=== PATIENT | male | born 1935 | race Caucasian/White ===

== ENCOUNTER → 2017-06-08 | Outpatient (CLI) | payer MEDICARE | END | disposition home or self-care (01) | LOC: BFHH 10:27 | PROVIDERS: ATTEND Family Medicine | DX: H34.11 Central retinal artery occlusion, right eye (principal); I48.0 Paroxysmal atrial fibrillation; M54.5 Low back pain; G47.30 Sleep apnea, unspecified; Z85.038 Personal history of other malignant neoplasm of large intestine; I65.29 Occlusion and stenosis of unspecified carotid artery ==

== ENCOUNTER 2017-06-23 14:25 | Inpatient (IN) | payer MEDICARE ==
--- NOTE | 2017-06-23 14:26 | HP ---
SUPERVISING PHYSICIAN: Yakov Peterson M.D. CHIEF COMPLAINT: Weakness and shortness of breath. HISTORY OF PRESENT ILLNESS: This is an 81 year-old male patient who was recently in [place] due to a GI bleed. He was discharged this past Wednesday. While he was at [facility], he had an EGD per Dr. Mikhail Aceves which found erosive gastritis and later had a colonoscopy per Dr. Abdi Mercedes. They found some polyps that they removed as well as some diverticulosis. There was no active bleeding but his hemoglobin was in the 7s. He was discharged from the hospital on Wednesday and he had a 7.2 hemoglobin. Since getting home, he has gotten weaker and weaker. In fact, he has had to be transported around in a wheelchair. He has gotten very short of breath. There was some question at some point where they thought he may have had some left lower lobe pneumonia. It is unclear whether he was treated. He was taken off his Xarelto while he was in there and was told to stay off of it for 2 weeks, and to followup with his cigarette packer. Dr. Hernandez saw him today and his hemoglobin was 7.4. He was short of breath and very weak and so he called me for a direct admission. PAST MEDICAL HISTORY: 1. Atrial fibrillation. 2. Hyperlipidemia. 3. Obstructive sleep apnea. 4. Peptic ulcer disease. 5. Obstructive sleep apnea. 6. Colon cancer times 2. 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 PAST SURGICAL HISTORY: 1. Arthroscopy of the left knee. 2. Cataract removal. 3. Colon resection times 2 with hemicolectomy. 4. Thoracic kyphoplasty. OUTPATIENT MEDICATIONS: Per the EMR and awaiting verification. ALLERGIES: NO KNOWN DRUG ALLERGIES. SOCIAL HISTORY: He is . He has 6 children. He has a past history of cigarette smoking but he quit in 1973. He denies any ETOH or illicit drug use. REVIEW OF SYSTEMS: Positive for fatigue. Negative for fever or weight changes. HEENT: Negative for sinus symptoms, vision changes or sore throat. RESPIRATORY: Positive for shortness of breath and coughing as well as wheezing. CARDIAC: Negative for chest pain, palpitations or tachycardia. GASTROINTESTINAL: Negative for abdominal pain, change in stool, nausea, vomiting or diarrhea. GENITOURINARY: Negative for polyuria, dysuria or hematuria. NEUROLOGIC: Positive for weakness. Negative for headache and seizures. PHYSICAL EXAMINATION: VITAL SIGNS: He is afebrile, heart rate 88, blood pressure 122/58, respiratory rate 20, O2 sat is 96%. GENERAL: This is an 81 year-old male patient who is lying in his hospital bed. He is very pale and appears very tired. HEENT: Normocephalic and atraumatic. Oropharynx is clear. Oral mucous membranes are very pale but moist. NECK: Supple without mass. RESPIRATORY: Essentially clear in the apices to auscultation bilaterally. Somewhat diminished at the bases. CHEST: There is equal rise and fall of the chest with inspiration and expiration. CARDIOVASCULAR: Regular rate and rhythm. ABDOMEN: Soft, nondistended, non-tender. Bowel sounds are positive. EXTREMITIES: No cyanosis, clubbing or edema. NEUROLOGIC: He is awake, alert and oriented times three. LABORATORY: Electrolytes are within normal limits. Calcium 7.7. CBC from A shows WBC 8.8 with hemoglobin 7.4, hematocrit 23.8, platelets 284, neutrophils 74.2%. All other labs and films have been reviewed via the EMR. ASSESSMENT: 1. Anemia secondary to acute blood loss from ongoing gastrointestinal bleed. He recently had a colonoscopy per Dr. Abdi Mercedes, residential designer finding diverticulosis and multiple polyps as well as an EGD per Dr. Mikhail Aceves, residential designer with findings of erosive gastritis. He was discharged with a hemoglobin of 7.2 on 06/20/17. 2. Cellulitis of the left arm. 3. Atrial fibrillation previously on Xarelto, was stopped about 1 week ago due to his gastrointestinal bleed. 4. Shortness of breath secondary to #1. There is also a question of left lower lobe pneumonia at last hospital stay. 5. Weakness secondary to #1. 6. Obstructive sleep apnea. 7. History of colon cancer times 2. PLAN: We will admit the patient to the hospital. We will transfuse 2 units of packed red blood cells. I have also given him Rocephin for the cellulitis on his left arm. I have given him Protonix for ulcer prophylaxis. I have repeated his lab in the morning. I have also done a chest x-ray for morning to evaluate his lung status. I have restarted his home medications. He sees Dr. Sauceda in [place] and the patient told me that Dr. Sauceda would not restart his Xarelto, that he needs to speak to his residential designer .Dr. Mercedes, his residential designer, said he needed to talk to his cigarette packer. The patient would like to see Dr. Gallegos mostly for convenience. Instead of going to [place], he can see Dr. Gallegos here in [place]. His sees Dr. Gallegos. At some point, we may need to get Dr. Hernandez to refer him to Dr. Gallegos and we will also need to address at some point restarting his Xarelto. In the meantime, we will continue to monitor the patient closely and follow as needed. Anticipated length of stay is [address] Peterson is the collaborating physician available for consultation. [facility][id number] [facility]
[2017-06-23] MEDS ORDERED: ACETAMINOPHEN 325 MG TAB PO ONE (14:52)
[2017-06-23] MEDS ORDERED: diphenhydrAMINE HCL 50 MG/ML VIAL IV ONE (14:52)
[2017-06-23] MEDS ORDERED: FUROSEMIDE INJ 40 MG/4 ML VIAL IV ONE (14:52)
[2017-06-23] MEDS ORDERED: SODIUM CHLORIDE 0.9% 500ML 500 ML IVS SCH (15:00)
[2017-06-23] MEDS ORDERED: SODIUM CHLORIDE 0.9% (FLUSH) 10 ML SYG IV PRN ×2 (15:10→15:43)
[2017-06-23] MEDS ORDERED: IV SET AND CAP CHANGE INJ INJ SCH ×2 (15:30→16:00)
[2017-06-23] MEDS ORDERED: cefTRIAXone SODIUM 1 GM VIAL ONE (17:37)
[2017-06-23] MEDS ORDERED: SODIUM CHL 0.9% 50ML MIN-BAG+ 50 ML IVPB ONE (17:37)
[2017-06-23] MEDS: cefTRIAXone SODIUM 1 GM in SODIUM CHL 0.9% 50ML MIN-BAG+ 50 ML IVPB SCH (17:44)
[2017-06-23] MEDS ORDERED: PANTOPRAZOLE SODIUM IV 40 MG VIAL IV SCH (18:00)
--- NOTE | 2017-06-23 18:25 | PCM.CORE ---
Physician DVT/VTE - Contraindications Medication Contraindication: Medical Contraindication - Nurse DVT Assessment & Total Each Risk Factor Represents 5 Points: Stroke < 1 month Each Risk Factor Represents 3 Points: Age over 75 years Each Risk Factor is 1 Point: Obesity (BMI >25) DVT Assessment Score: 9 - 5 or more Very High Risk Treatments: Early Ambulation *, Sequential Compression Device
[2017-06-23] MEDS ORDERED: TEMAZEPAM 15 MG CAP PO PRN (20:33)
[2017-06-23] MEDS: SODIUM CHLORIDE 0.9% (FLUSH) 10 ML SYG IV SCH (21:45)
[2017-06-24] MEDS ORDERED: PANTOPRAZOLE SODIUM TAB 40 MG PO ONE (05:14)
[2017-06-24] MEDS: PANTOPRAZOLE SODIUM TAB 40 MG PO SCH (06:14)
--- NOTE | 2017-06-24 06:49 | RAD ---
Clinical History : pna , MAIN Exam : PA and lateral views of the chest 06/24/2017 5:00 AM CDT Comparisons : none Findings : There is right perihilar airspace disease. The rest the lungs remain largely clear. The heart is normal in size. The mediastinal contours are normal in appearance. The thoracic spine is age appropriate. The shoulders are unremarkable. Limited evaluation of the upper abdomen demonstrates no gross abnormalities. Impression: Right perihilar airspace opacity, likely representing pneumonia though follow-up to radiographic resolution is recommended. Electronically signed by: Juan Rojas MD 06/24/2017 6:47 AM CDT
[2017-06-24] MEDS ORDERED: CITALOPRAM HBR 20 MG TAB ONE (07:30)
[2017-06-24] MEDS ORDERED: METOPROLOL SUCCINATE XL 25 MG TAB PO ONE (07:30)
[2017-06-24] MEDS: CITALOPRAM HBR 20 MG TAB PO SCH (08:52)
[2017-06-24] MEDS: ATORVASTATIN 10 MG TAB PO SCH (08:52)
[2017-06-24] MEDS: SODIUM CHLORIDE 0.9% (FLUSH) 10 ML SYG IV SCH ×2 (08:52→20:50)
[2017-06-24] MEDS: METOPROLOL SUCCINATE XL 25 MG TAB PO SCH (08:52)
[2017-06-24] MEDS ORDERED: CRESTOR 5 MG PO SCH (09:00)
[2017-06-24] MEDS ORDERED: LEVALBUTEROL NEBS 1.25 MG/3 ML VIAL NEB PRN (09:04)
[2017-06-24] MEDS ORDERED: SODIUM CHLORIDE 0.9% 250ML 250 ML ONE (09:44)
[2017-06-24] MEDS ORDERED: AZITHROMYCIN IV 500 MG VIAL IVPB ONE (09:45)
[2017-06-24] MEDS: AZITHROMYCIN IV 500 MG in SODIUM CHLORIDE 0.9% 250ML 250 ML IVPB SCH (09:51)
[2017-06-24] MEDS: LEVALBUTEROL NEBS 1.25 MG/3 ML VIAL NEB SCH ×2 (10:03→15:26)
[2017-06-24] MEDS ORDERED: SODIUM CHL 0.9% 50ML MIN-BAG+ 50 ML IVPB ONE (13:52)
[2017-06-24] MEDS ORDERED: cefTRIAXone SODIUM 1 GM VIAL ONE ×2 (13:52)
--- NOTE | 2017-06-24 14:53 | PN ---
SUPERVISING PHYSICIAN: Yakov Peterson MD DATE: 06/24/17 SUBJECTIVE: The patient continues to have some mild shortness of breath at rest. He is having productive sputum this morning. He did get his units of packed cells last night times two and had no complications. He says he feels a little bit better this morning, but continues to have some mild discomfort in the abdomen and at times continues to have dark stools, but he is noted to be on iron supplementation. OBJECTIVE: VITAL SIGNS: Temperature 98.3. Pulse 87. Blood pressure 120/80. Respirations 20. Saturation 94% on room air at rest. I&Os show negative balance of 1598. He has had one bowel movement. GENERAL: The patient appears ill and tired. He is pale. He appears to be in no acute distress. LUNGS: There is no obvious wheezing. Lung sounds are diminished in both bases. Very faint coarse rhonchi sound heard on the lateral posterior aspect on the right. CARDIAC: Regular rate and rhythm. ABDOMEN: Obese, but soft, nontender. Bowel sounds are positive. EXTREMITIES: No cyanosis, clubbing or edema. NEUROLOGIC: Awake, alert and oriented times three. LABORATORY: Hemoglobin 9.3, hematocrit 28.1 after 2 units of packed red blood cells. Platelet count 262,000, white count 7,400, differential within normal limits. Chemistries show normal electrolytes with BUN 17, creatinine 1.05, calcium unchanged from admission at 7.7 with albumin 2.7, total bilirubin elevated today at 1.5 compared to admission of 0.7. MICROBIOLOGY: Sputum culture pending. RADIOLOGY: Chest x-ray today per radiologic interpretation shows right perihilar airspace opacity, likely representing pneumonia. ASSESSMENT: 1. Right middle lobe pneumonia, possibly health care acquired as the patient as recently been in the hospital with sputum cultures pending. 2. Symptomatic anemia secondary to recent gastrointestinal bleed. The patient was scoped by Dr. Abdi Mercedes, cistern room operator, in the last week showing diverticulosis and multiple polyps as well as an EGD performed by Dr. Mikhail Aceves, cistern room operator, with findings of erosive gastritis. The patient was recently discharged on 06/20/17, with a hemoglobin of 7.2. 3. Cellulitis of the left arm, likely secondary to previous IV administrations and multiple IV sticks from last hospitalization. 4. Atrial fibrillation previously on Xarelto, stopped a week ago previous due to his gastrointestinal bleed. 5. Continued shortness of breath secondary to underlying pneumonia with the patient having history of recently having left lower lobe pneumonia from previous hospitalization. 6. Significant deconditioning secondary to anemia and underlying pneumonia. 7. Obstructive sleep apnea. 8. History of colon cancer times 2. PLAN: The patient has shown underlying developing right lower lobe pneumonia and given that he has recently been treated for a left lower lobe pneumonia, I will start him on antibiotics in addition to the Rocephin to include azithromycin and monitor closely. We will await his sputum culture to further target antibiotic therapy as possible once reports are available. In regard to starting DVT prophylaxis, we will continue to monitor the patient closely and once discharged, the patient will need to followup with Dr. Hernandez so they can further address his Xarelto medication as he is followed by Dr. Sauceda in [place]. We will plan to do a hemoglobin and hematocrit this afternoon around 1600 to monitor closely for decrease in blood levels. We will start him on aggressive pulmonary hygiene. Anticipate length of stay to be at least two to three days. I will go ahead and do occult blood as well since he has reported some continued tarry, black stools. Until discharge, we will continue to monitor the patient closely and treat appropriately. #[id number] [facility]
[2017-06-24] MEDS: cefTRIAXone SODIUM 1 GM in SODIUM CHL 0.9% 50ML MIN-BAG+ 50 ML IVPB SCH (17:14)
[2017-06-25] MEDS: LEVALBUTEROL NEBS 1.25 MG/3 ML VIAL NEB SCH ×4 (00:08→23:55)
[2017-06-25] MEDS: PANTOPRAZOLE SODIUM TAB 40 MG PO SCH (06:11)
--- NOTE | 2017-06-25 06:39 | RAD ---
Procedure: XR CHEST 2 VIEWS Exam Date: 06/25/2017 Ordering Provider: Enrique Huff NP Clinical Indication: pneumonia Comparison: 06/24/2017 Findings: Cardiomediastinal silhouette is stable. Focal lung consolidation: Stable right infrahilar opacities. No new lung infiltrates. Pleural effusion: None Pneumothorax: None Acute bony or soft tissue abnormality: None Impression: 1. Stable right infrahilar opacities, likely pneumonia. No new lung infiltrates. Electronically signed by: Paul Nelson MD 06/25/2017 6:38 AM CDT
[2017-06-25] MEDS ORDERED: SODIUM CHLORIDE 0.9% 250ML 250 ML ONE (08:06)
[2017-06-25] MEDS ORDERED: AZITHROMYCIN IV 500 MG VIAL IVPB ONE (08:07)
[2017-06-25] MEDS: METOPROLOL SUCCINATE XL 25 MG TAB PO SCH (08:31)
[2017-06-25] MEDS: SODIUM CHLORIDE 0.9% (FLUSH) 10 ML SYG IV SCH ×2 (08:31→20:54)
[2017-06-25] MEDS: ATORVASTATIN 10 MG TAB PO SCH (08:31)
[2017-06-25] MEDS: CITALOPRAM HBR 20 MG TAB PO SCH (08:31)
[2017-06-25] MEDS ORDERED: SODIUM CHLORIDE 0.9% 1000ML 1,000 ML IVS PRN (08:48)
[2017-06-25] MEDS ORDERED: SODIUM CHLORIDE 0.9% 500ML 500 ML IVS ONE (08:49)
[2017-06-25] MEDS ORDERED: FERROUS SULFATE 325 MG TAB PO SCH (09:00)
[2017-06-25] MEDS: AZITHROMYCIN IV 500 MG in SODIUM CHLORIDE 0.9% 250ML 250 ML IVPB SCH (10:18)
[2017-06-25] MEDS: FERROUS SULFATE 325 MG TAB PO SCH (10:19)
[2017-06-25] MEDS ORDERED: SUCRALFATE 1 GM TAB PO SCH (11:30)
--- NOTE | 2017-06-25 13:35 | PN ---
SUPERVISING PHYSICIAN: Yakov Peterson MD DATE: 06/25/17 SUBJECTIVE: The patient feels a little better today. He is not quite as short of breath. He was able to ambulate yesterday and maintained O2 saturations in the 90s on room air. He has been afebrile. He says he is not longer seeing any tarry stools, but occult bloods are pending. OBJECTIVE: VITAL SIGNS: Temperature 97.7. Pulse 89. Blood pressure 98/57. Saturation 96% on nasal cannula at rest. I&Os showed negative balance of 1598 with 902 in, 2500 out with positive bowel movement. Weight 106.4 kg. CHEST: Lungs clear to auscultation, just diminished towards the bases. No obvious wheezing or rales were noted. HEART: Regular rate and rhythm. ABDOMEN: Soft, nontender. Positive bowel sounds. ABDOMEN: Obese, but soft and nontender. Positive bowel sounds. EXTREMITIES: No cyanosis, clubbing or edema. The area on his left arm is less erythematous today and not extended past the lines marked on admission. If fact , receding today. NEUROLOGIC: Alert and oriented times three. LABORATORY: Hemoglobin did drop slightly down to 8.9 and hemoglobin 27.5. Platelet count 249,000. Differential continues to show a left shift. White count within normal limits. Chemistries show normal electrolytes with potassium 3.7. BUN 16, creatinine 0.87. Calcium 7.7, corrected for hypoalbuminemia of 2.7 to 8.7. MICROBIOLOGY: Sputum culture preliminary shows gram negative diplococci. Cultures pending. RADIOLOGY: Chest x-ray today per radiologic interpretation, two-view chest, shows stable infrahilar opacity, likely pneumonia. No new lung infiltrates. ASSESSMENT: 1. Right middle lobe pneumonia, possibly health care related as the patient has recently been in the hospital with sputum cultures pending with preliminary cultures showing a possible Moraxella species, which is a gram negative diplococci with the patient currently on antibiotic therapy to include azithromycin and Rocephin. 2. Symptomatic anemia secondary to recent gastrointestinal bleed. The patient with recent EGD and colonoscopy with results showing diverticulosis, multiple polyps and erosive gastritis with the patient having recently been discharged from [facility] on 06/20/17 with hemoglobin 7.2 requiring transfusion of 2 units of packed red blood cells, currently stable and also now on a proton pump inhibitor and Carafate. 3. Cellulitis of the left arm, likely secondary to previous IV administrations at [facility] and multiple IV sticks, showing improvement with Rocephin. 4. Atrial fibrillation previously on Xarelto, stopped a week previous due to his gastrointestinal bleed. Xarelto will need to be resumed in the near future once stable. 5. Significant deconditioning secondary to anemia and underlying pneumonia. 6. Obstructive sleep apnea. 7. History of colon cancer times 2 with colon resections. PLAN: The patient will continue with current plan of care with Rocephin and azithromycin awaiting culture results on sputum to further target antibiotic therapy. We will continue with aggressive pulmonary hygiene with chest physiotherapy. We will hopefully anticipate being able to discharge tomorrow once sputum culture results are available and clinically reevaluate the patient. In regard to DVT prophylaxis, we will continue to monitor the patient closely. He will need to followup with Dr. Hernandez so they can further address his Xarelto medication. He is followed by Dr. Sauceda in [place]. We will plan to repeat hemoglobin again at 1600 to further monitor as well and await any stool occult blood. Until discharge, we will continue to monitor the patient closely and treat appropriately. #[id number] [facility]
[2017-06-25] MEDS ORDERED: LIDOCAINE VIS-MYLANTA 30 ML UD PO ONE (15:28)
[2017-06-25] MEDS ORDERED: LIDOCAINE HCL 2% (MOUTH-THROAT) 15 ML UD ONE (15:56)
[2017-06-25] MEDS ORDERED: MAGNESIUM HYDROXIDE 30 ML UD ONE (15:56)
[2017-06-25] MEDS ORDERED: SODIUM CHL 0.9% 50ML MIN-BAG+ 50 ML IVPB ONE (17:02)
[2017-06-25] MEDS ORDERED: cefTRIAXone SODIUM 1 GM VIAL ONE (17:02)
[2017-06-25] MEDS: cefTRIAXone SODIUM 1 GM in SODIUM CHL 0.9% 50ML MIN-BAG+ 50 ML IVPB SCH (17:05)
[2017-06-25] MEDS: SUCRALFATE 1 GM/10 ML 1 GM UD PO SCH ×2 (17:05→20:54)
[2017-06-25] MEDS: KCL 20MEQ/D5 1/2NS 1,000 ML IVS PRN (21:13)
[2017-06-26 00:59] VITALS: TEMP 98.2
[2017-06-26] MEDS: KCL 20MEQ/D5 1/2NS 1,000 ML IVS PRN (02:19)
[2017-06-26] MEDS: SUCRALFATE 1 GM/10 ML 1 GM UD PO SCH (06:35)
[2017-06-26] MEDS: PANTOPRAZOLE SODIUM TAB 40 MG PO SCH (06:35)
[2017-06-26] MEDS ORDERED: SODIUM CHLORIDE 0.9% 250ML 0 ML ONE (07:47)
[2017-06-26] MEDS ORDERED: AZITHROMYCIN IV 500 MG VIAL IVPB ONE (07:48)
[2017-06-26] MEDS ORDERED: KCL 20MEQ/D5 1/2NS 1,000 ML IVS PRN (08:00)
[2017-06-26] MEDS: LEVALBUTEROL NEBS 1.25 MG/3 ML VIAL NEB SCH (08:05)
[2017-06-26 08:17] VITALS: O2SAT 99
--- NOTE | 2017-06-26 09:09 | RAD ---
EXAM: Two view chest. INDICATION: Pneumonia. COMPARISON: Chest x-ray: 06/25/2017. FINDINGS: Again noted is a right perihilar airspace opacity. The heart size is stable. There is no pneumothorax or pleural effusion. The bones are unchanged with a sclerotic lesion along the lower thoracic spine IMPRESSION: Right perihilar airspace opacity, likely representing pneumonia Electronically signed by: Ritchie Carty MD 06/26/2017 9:08 AM CDT Workstation: [id number]
[2017-06-26] MEDS: SODIUM CHLORIDE 0.9% (FLUSH) 10 ML SYG IV SCH (09:16)
[2017-06-26] MEDS: CITALOPRAM HBR 20 MG TAB PO SCH (09:16)
[2017-06-26] MEDS: ATORVASTATIN 10 MG TAB PO SCH (09:16)
[2017-06-26] MEDS: FERROUS SULFATE 325 MG TAB PO SCH (09:16)
[2017-06-26] MEDS: METOPROLOL SUCCINATE XL 25 MG TAB PO SCH (09:16)
[2017-06-26 09:33] VITALS: BP 152/84
[2017-06-26] MEDS ORDERED: AZITHROMYCIN 250 MG TAB PO SCH (10:00)
--- NOTE | 2017-07-15 18:18 | DS ---
SUPERVISING PHYSICIAN: Yakov Peterson M.D. DISCHARGE DIAGNOSIS: 1. Right middle lobe pneumonia, possibly health care acquired as the patient had recently been in the hospital for having sputum cultures final culture results showing normal jeferson with the patient showing to be clinically improving with parenteral antibiotics that included Azithromycin and Rocephin. 2. Symptomatic anemia secondary to recent gastrointestinal bleed. The patient with recent EGD and colonoscopy showing results of diverticulosis with multiple polyps and erosive gastritis with the patient having recently been discharged from [facility] on 06/20/17 with hemoglobin 7.2 requiring transfusion of 2 units of packed red blood cells showing to be stable, also started on a proton pump inhibitor and Carafate. 3. Cellulitis of the left arm secondary to previous IV administrations at [facility] with multiple sticks showing improvement with Rocephin. 4. Atrial fibrillation having previously been on Xarelto, stopped 2 weeks previous due to gastrointestinal bleed with Xarelto needing to be resumed in the near future once showing to be stable. 5. Significant deconditioning secondary to anemia and underlying pneumonia. 6. Obstructive sleep apnea. 7. History of colon cancer times 2 with colon resections. HISTORY OF PRESENT ILLNESS: Mr. Adler is an 81 year-old male patient that was recently seen in [place] due to a GI bleed. He was discharged the previous Wednesday prior to admission. While he was at [facility], he had an EGD by Dr. Mikhail Aceves which found erosive gastritis and then later he had a colonoscopy by Dr. Abdi Mercedes. They found some polyps that they removed as well as some diverticulosis. There was no active bleeding but his hemoglobin was down to 7. He was discharged from the hospital on Wednesday and had a hemoglobin of 7.2 at that time. At home, he had begun getting weaker and weaker to the point where he had to be transported around in a wheelchair. He had gotten very short of breath. There was some question at some point whether or not he had thought he had left lower lobe pneumonia. It is unclear whether he was treated. He was taken off his Xarelto while at [facility] and was told to stay off it for at least 2 weeks, and to followup with Cardiology. Dr. Hernandez saw him in clinic and his hemoglobin was 7.4. He was short of breath, severely weak and therefore was directly admitted to the hospital. LABORATORY STUDIES: CBC on admission showed hemoglobin 9.3 and 28.1 after transfusion of 2 units of packed cells. He did show fairly stable H&H, at discharge his H&H was 8.5 and 26.0. White count was within normal limits at 6, 100, platelet count was 249,000. Differential showed to be within normal limits. Chemistries showed normal electrolytes with initial potassium on admission of 4.0 and sodium 137, at discharge was 3.6 potassium and sodium was 139. BUN 11, creatinine 0.77 at discharge. He had 2 sets of troponins that were less than 0.02. Liver functions showed to be within normal limits. He had 1 occult blood that was negative. MICROBIOLOGY: He had a gram stain that showed moderate WBCs with mucous and gram negative cocci with final culture results showing normal jeferson at 48 hours. RADIOLOGY: EKG on admission showed atrial fibrillation with controlled ventricular rate at 83. Initial chest x-ray on the morning after admission per radiology interpretation showed a right perihilar airspace opacity likely representing pneumonia. This was followed-up with multiple x-rays and on the morning of discharge on the a two view chest x-ray per radiology interpretation showed right perihilar airspace likely representing pneumonia. HOSPITAL COURSE: Mr. Adler was admitted on 06/23/17 as noted in History of Present Illness for severe anemia. He was transfused 2 units of packed red blood cells with no complications. His H&H did improve clinically to a discharge H&H of 8.5 and 26.0. He remained hemodynamically stable. Blood pressure on discharge was 152/84, respirations 20, satting 93% on room air with temperature 98.2, pulse 100. It was felt that he had clinically shown to be stable and was showing no obvious signs of bleeding. His arm had also shown improvement with Rocephin. He had had aggressive pulmonary hygiene and was felt well enough to be discharged to continue with treatment of both pneumonia and the cellulitis with close observation of anemia in the outpatient setting. Therefore he was discharged in stable condition. PLAN: Mr. Adler was discharged on 06/26/17 with instructions to followup with Dr. Hernandez as scheduled in 2 weeks. He is to resume his home medications as instructed except for holding his Warfarin until he was seen in followup. He had home health. They are to draw labs on Eliud after discharge and recheck blood levels. He was to take his medications as directed and return to the hospital should he have any concerning symptoms. New prescriptions at discharge included: 1. Azithromycin 500 mg tablets daily for 2 days. 2. Align 4 mg tablet daily, #30. 3. Doxycycline 100 mg twice daily, #20. 4. Xopenex neb treatments 1.25 mg every 8 hours as needed, #25. 5. Xopenex nebulizer treatments every 8 hours as scheduled, #25. 6. Carafate 1 gram oral tablet at meals and at bedtime, #40. Activity is increase as tolerated. Diet is regular diet as tolerated, to avoid spicy foods. Condition at discharge was stable. #[id number] [facility]
== END 2017-06-26 11:35 | disposition home health service (06) | DRG 811 ==
LOC: UNDOADMIN 14:25 → MS 14:25 → UNDOADMIN 06-25 08:00 → MS 06-25 08:00 → UNDODISIN 06-26 11:35
PROVIDERS: ADMIT Nurse Practitioner Acute Care; ATTEND Nurse Practitioner Family
PROC: 30233N1 Transfusion of Nonautologous Red Blood Cells into Peripheral Vein, Percutaneous Approach (ICD-10-PCS; principal; 2017-06-23)
DX: D62 Acute posthemorrhagic anemia (principal); J18.9 Pneumonia, unspecified organism; K92.2 Gastrointestinal hemorrhage, unspecified; L03.114 Cellulitis of left upper limb; G47.33 Obstructive sleep apnea (adult) (pediatric); I48.91 Unspecified atrial fibrillation; Z79.01 Long term (current) use of anticoagulants; Z85.038 Personal history of other malignant neoplasm of large intestine

== ENCOUNTER 2017-06-29 10:49 | Observation (INO) | payer MEDICARE ==
--- NOTE | 2017-06-29 12:03 | ED.PDOC ---
History of Present Illness - General Chief Complaint: General Stated Complaint: Continued weakness, pale, no appetite Time Seen by Provider: 06/29/17 10:55 Source: patient, RN notes reviewed Exam Limitations: no limitations - History of Present Illness Initial Comments: Vinayak Adler 81 y/o male stated that he had been feeling weak and difficulty moving around since he was hospitalized 2 weeks ago for hematochezia.Had Hgb- 7.2 last week and was sent to [facility] and egd/colonoscopy done with biopsy report egd-chronic gastritis ;colon-adenomatous polyp no high grade lesion.He was sent home but came back here and was given 2 units of blood transfusion then was sent home Has history of a.fib was on xarelto and aspirin but was discontinued due to above. Timing/Duration: constant, getting worse, other - 2 weeks Improving Factors: nothing Worsening Factors: nothing Associated Symptoms: weakness, other - loss of appetite Allergies/Adverse Reactions: Allergies NO KNOWN ALLERGY Allergy (Verified 06/29/17 11:06) Home Medications: Ambulatory Orders Loperamide Cap [Imodium Cap] 2 mg PO BID PRN 07/29/15 Metoprolol Succinate [Toprol Xl] 25 mg PO QAM #30 tab 08/01/15 Pantoprazole Tablet [Protonix] 40 mg PO DAILY #5 tab 12/30/15 Acetaminophen Arthritis [Tylenol Arthritis Pain] 650 mg PO BID PRN 06/23/17 Calcium Carbonate-Vitamin D [Calcium + D3 600-200 mg-Unit] 1 tab PO DAILY Cholecalciferol [Vitamin D] 1,000 unit PO DAILY 06/23/17 Citalopram Hydrobromide 20 mg PO DAILY 06/23/17 Crestor 5 mg PO DAILY 06/23/17 Ferrous Sulfate 324 mg PO DAILY 06/23/17 Bifidobacterium Infantis [Align] 4 mg PO DAILY #30 cap 06/26/17 Doxycycline Hyclate [Vibramycin] 100 mg PO BID #20 cap 06/26/17 Levalbuterol Nebs [Xopenex NEBS] 1.25 mg NEB Q8H PRN #25 vial 06/26/17 Levalbuterol Nebs [Xopenex NEBS] 1.25 mg NEB RTQ8 #25 vial 06/26/17 Sucralfate Tab [Carafate Tab] 1 gm PO ACHS #40 tab 06/26/17 Review of Systems - Review of Systems Constitutional: States: see HPI, weakness, other - anorexia EENTM: States: no symptoms reported Respiratory: States: no symptoms reported Cardiology: States: see HPI Gastrointestinal/Abdominal: States: see HPI Genitourinary: States: no symptoms reported Musculoskeletal: States: no symptoms reported Skin: States: no symptoms reported Neurological: States: 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 Endocrine: States: no symptoms reported Hematologic/Lymphatic: States: see HPI, anemia Past Medical History (General) - Patient Medical History Hx Seizures: No Hx Stroke: Yes - 05/2017 Hx Asthma: No Hx of COPD: No Hx Cardiac Disorders: Yes - A fib Hx Congestive Heart Failure: No Hx Pacemaker: No Hx Hypertension: No Hx Diabetes: No Hx Gastroesophageal Reflux: Yes - heartburn Hx Cancer: Yes - Adenocarcinoma to colon Hx Hepatitis C: No Hx MRSA: No Surgical History: colectomy, other - egd/colonoscopy - Vaccination History Hx Tetanus, Diphtheria Vaccination: Yes Hx Influenza Vaccination: No Hx Pneumococcal Vaccination: Yes - Social History Hx Tobacco Use: Yes - Quit 1974 Hx Chewing Tobacco Use: No Hx Alcohol Use: No Hx Substance Use: No Hx Substance Use Treatment: No Hx Depression: No Hx Physical Abuse: No Hx Emotional Abuse: No Hx Suspected Abuse: No - Female History Patient : No Family Medical History - Family History Father Name: Yakov Adler Living Status: Age at (years of age): 81 Cause of : cancer Hx Family Cancer: Yes - prostate Hx Family;Other: Pt has multiple male relatives with colon cancer. Physical Exam - Physical Exam General Appearance: Alert, Comfortable, No apparent distress Eye Exam: right other - legally blind -old cva, left normal Ears, Nose, Throat: hearing grossly normal, normal ENT inspection, normal pharynx Neck: non-tender, full range of motion, supple Respiratory: chest non-tender, lungs clear, normal breath sounds, no respiratory distress Cardiovascular/Chest: normal peripheral pulses, no gallop, no murmur, irregularly irregular Peripheral Pulses: radial,right: 2+, radial,left: 2+ Gastrointestinal/Abdominal: normal bowel sounds, non tender, soft, no organomegaly Rectal Exam: normal rectal tone, heme positive stool Back Exam: no CVA tenderness, no vertebral tenderness Extremity: normal range of motion, non-tender, no pedal edema, no calf tenderness Neurologic: no motor/sensory deficits, alert, normal mood/affect Skin Exam: normal color, warm/dry Lymphatic: no adenopathy Progress - Progress Progress: 06/29/17 12:08 Laboratory Tests 06/29/17 11:20 WBC 7.0 RBC 3.33 L Hgb 9.9 L Hct 30.2 L MCV 90.7 MCH 29.7 MCHC 32.7 L RDW 16.8 H Plt Count 326 MPV 7.7 Absolute Neuts (auto) 4.90 Absolute Lymphs (auto) 1.10 Absolute Monos (auto) 0.80 Absolute Eos (auto) 0.10 Absolute Basos (auto) 0.10 Neutrophils % 70.9 Lymphocytes % 15.5 L Monocytes % 11.1 H Eosinophils % 1.5 Basophils % 1.0 - Results/Orders Results/Orders: Laboratory Tests 06/29/17 06/29/17 06/29/17 11:20 11:20 11:20 WBC 7.0 RBC 3.33 L Hgb 9.9 L Hct 30.2 L MCV 90.7 MCH 29.7 MCHC 32.7 L RDW 16.8 H Plt Count 326 MPV 7.7 Absolute Neuts (auto) 4.90 Absolute Lymphs (auto) 1.10 Absolute Monos (auto) 0.80 Absolute Eos (auto) 0.10 Absolute Basos (auto) 0.10 Neutrophils % 70.9 Lymphocytes % 15.5 L Monocytes % 11.1 H Eosinophils % 1.5 Basophils % 1.0 Sodium 134 L Potassium 3.9 Chloride 102 Carbon Dioxide 26 Anion Gap 9.9 L BUN 14 Creatinine 0.81 BUN/Creatinine Ratio 17.3 Random Glucose 99 Serum Osmolality 268.7 L Calcium 8.4 Total Bilirubin 1.4 H AST 29 ALT 23 Alkaline Phosphatase 57 B-Natriuretic Peptide 153.0 H Serum Total Protein 6.1 L Albumin 2.7 L Globulin 3.4 Albumin/Globulin Ratio 0.8 L Urine Color Urine Appearance Urine pH Ur Specific Gower Urine Protein Urine Glucose (UA) Urine Ketones Urine Blood Urine Nitrite Urine Bilirubin Urine Urobilinogen Ur Leukocyte Esterase Urine RBC Urine WBC Ur Epithelial Cells Amorphous Sediment Urine Bacteria Stool Occult Blood 06/29/17 06/29/17 12:21 16:32 WBC RBC Hgb Hct MCV MCH MCHC RDW Plt Count MPV Absolute Neuts (auto) Absolute Lymphs (auto) Absolute Monos (auto) Absolute Eos (auto) Absolute Basos (auto) Neutrophils % Lymphocytes % Monocytes % Eosinophils % Basophils % Sodium Potassium Chloride Carbon Dioxide Anion Gap BUN Creatinine BUN/Creatinine Ratio Random Glucose Serum Osmolality Calcium Total Bilirubin AST ALT Alkaline Phosphatase B-Natriuretic Peptide Serum Total Protein Albumin Globulin Albumin/Globulin Ratio Urine Color Yellow Urine Appearance Clear Urine pH 6.5 Ur Specific Gower 1.015 Urine Protein Negative Urine Glucose (UA) Negative Urine Ketones 15 H Urine Blood Negative Urine Nitrite Negative Urine Bilirubin Negative Urine Urobilinogen 0.2 Ur Leukocyte Esterase Negative Urine RBC 0 Urine WBC 0 Ur Epithelial Cells 0 Amorphous Sediment 2+ Urine Bacteria 0 Stool Occult Blood Positive - EKG/XRAY/CT XRAY: chest - increase interstitial markings Departure - Departure Clinical Impression: Weakness generalized, History of gastrointestinal hemorrhage, Anemia due to blood loss, chronic, Positive fecal occult blood test Time of Disposition: 17:30 - D/W Dr. Kim-Hospitalist Disposition: Admit Patient Condition: Fair Home Medications: Ambulatory Orders Loperamide Cap [Imodium Cap] 2 mg PO BID PRN 07/29/15 Metoprolol Succinate [Toprol Xl] 25 mg PO QAM #30 tab 08/01/15 Pantoprazole Tablet [Protonix] 40 mg PO DAILY #5 tab 12/30/15 Acetaminophen Arthritis [Tylenol Arthritis Pain] 650 mg PO BID PRN 06/23/17 Calcium Carbonate-Vitamin D [Calcium + D3 600-200 mg-Unit] 1 tab PO DAILY Cholecalciferol [Vitamin D] 1,000 unit PO DAILY 06/23/17 Citalopram Hydrobromide 20 mg PO DAILY 06/23/17 Crestor 5 mg PO DAILY 06/23/17 Ferrous Sulfate 324 mg PO DAILY 06/23/17 Bifidobacterium Infantis [Align] 4 mg PO DAILY #30 cap 06/26/17 Doxycycline Hyclate [Vibramycin] 100 mg PO BID #20 cap 06/26/17 Levalbuterol Nebs [Xopenex NEBS] 1.25 mg NEB Q8H PRN #25 vial 06/26/17 Levalbuterol Nebs [Xopenex NEBS] 1.25 mg NEB RTQ8 #25 vial 06/26/17 Sucralfate Tab [Carafate Tab] 1 gm PO ACHS #40 tab 06/26/17
--- NOTE | 2017-06-29 12:37 | RAD ---
EXAM DESCRIPTION: Chest,1 View CLINICAL HISTORY: weak. Pneumonia. COMPARISON: June 24, 2017. June 26, 2017. FINDINGS: Limited technique portable view of the thorax. Persistent airspace opacity right middle lobe region. Heart and mediastinum are stable in appearance. Increased interstitial lung markings suggested and towards the periphery in addition to mild cephalization. Osseous structures stable. IMPRESSION: Relatively stable right middle lobe airspace opacity. Follow-up after resolution of acute clinical symptoms. Cephalization with increased interstitial lung markings. Correlate for symptoms of interstitial pulmonary edema. Electronically signed by: Fam Watson MD 06/29/2017 12:36 PM CDT
[2017-06-29] MEDS ORDERED: HYDROcodone 5MG/APAP 325MG 1 EA TAB PO PRN (14:53)
[2017-06-29] MEDS ORDERED: ONDANSETRON INJ 4 MG/2 ML VIAL IV PRN (14:53)
[2017-06-29] MEDS ORDERED: IV SET AND CAP CHANGE INJ INJ SCH (15:00)
[2017-06-29] MEDS ORDERED: FERROUS SULFATE 325 MG TAB PO SCH (15:00)
--- NOTE | 2017-06-29 15:18 | HP ---
HISTORY OF PRESENT ILLNESS: This 81-year-old male was admitted to the hospital via the Emergency Room because of worsening symptoms of extreme weakness, unable to walk and not eating. He admits that almost any thought of food " turns his stomach.". He has had a history of worsening weakness literally over the last 2 to 3 months. 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 Shortly after this, he developed a clot "behind the right eye " resulting in blindness of the right eye even while on the Xarelto. The Xarelto was continued and then he developed significant gastrointestinal bleeding and was admitted to [facility] for possible pneumonia as well. He was given antibiotics resulting in his left forearm swelling significantly with associated discoloration and now peeling of the skin. Because of the gastrointestinal bleeding and a hemoglobin in the 7s, he was transferred to [facility]. Hemoglobin there was reported as 7.1 and because it was not lower than 7.1, he was sent home after upper endoscopy and colonoscopy performed. He had some diffuse gastritis as well as several polyps which were removed by the GI service. After returning home from [place], he got weaker and went to see his family doctor, Dr. Hernandez, who referred him to the hospital with a hemoglobin of 7.4 for specific treatment. He received 2 units of packed red blood cells and felt a little better for a while. He was sent home on doxycycline because of the left arm infection. He was also noted to have an abnormal chest x-ray with a right perihilar infiltrative process. He has subsequently gone home since receiving the red blood cells and now after being at home, he has been unable to get out of the bed. He is unable to get up to sit in a chair, unable to ambulate, is not eating and is taking fluids very poorly primarily because of his marked incontinence after an ultrasonic procedure to open up his bladder outlet. That was performed in [place] many years previously. He is now seen in the Emergency Room and is getting worse. He will be placed in the hospital for overnight stabilization and reevaluation in the morning of his hemoglobin status to see if he has had an acute worsening of his underlying gastrointestinal bleeding with worsening anemia and will require further investigation, especially of the abnormal chest x-ray and the atrial fibrillation. PAST MEDICAL HISTORY: 1. Recent onset atrial fibrillation. 2. Hyperlipidemia. 3. Obstructive sleep apnea. 4. Peptic ulcer disease. 5. Colon cancer requiring surgery on 2 occasions, adenocarcinoma. 6. 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 PAST SURGICAL HISTORY: 1. Arthroscopy of the knee. 2. Cataract removal. 3. Colon resection with 2 surgeries with hemicolectomy for cancer. 4. Thoracic kyphoplasty. OUTPATIENT MEDICATIONS: Please refer to nursing notes for list of verified home medications. ALLERGIES: NO KNOWN DRUG ALLERGIES. FAMILY HISTORY: Positive for cancer. SOCIAL HISTORY: He is . He has 6 children. He has a past history of cigarette smoking, but he quit in 1973. He denies alcohol at this time. REVIEW OF SYSTEMS: GENERAL: Significant fatigue, unable to even ambulate or adequately eat and not drinking well either. No fever or chills. HEENT: Significant vision loss in the right eye. LUNGS: Mild shortness of breath, was coughing. No hemoptysis. CARDIOVASCULAR: No significant palpitations or chest pains, but a history of atrial fibrillation. GASTROINTESTINAL: The patient does have some mild abdominal discomfort, especially epigastrium with some black stools. GENITOURINARY: No dysuria, but he has marked incontinence of urine. NEUROLOGIC: Extreme weakness. No significant headaches or seizures. PHYSICAL EXAMINATION: VITAL SIGNS: Afebrile. Pulse 92. Blood pressure 139/75. Pulse oximetry 94% on room air. Weight 108 kg on a bed scale. GENERAL: The patient is fairly awake and alert. His coloration seems to be quite pale, in fact, paler than his blood counts would dictate. He is fairly alert otherwise with the and daughter helping with the history acquisition. HEENT: Pale conjunctiva. Buccal mucosa is somewhat dry. NECK: Supple with no carotid bruits. LUNGS: Diminished breath sounds. CARDIOVASCULAR: Heart tones have some irregularities, fairly controlled rate. No significant murmurs. ABDOMEN: Diminished bowel tones with mild tenderness especially in the epigastric, right upper quadrant as well as left side of the abdomen on deep palpation. No organomegaly or masses noted. EXTREMITIES: Somewhat pale. Fairly good muscle tone. NEUROLOGIC: No focal neurological weakness, but the patient is generally very weak and having difficulty getting up out of the bed and especially ambulating. LABORATORY: Hemoglobin 9.9, white count 7,000, neutrophils 71%. Chemistries show sodium 134, potassium 3.9, BUN 14, creatinine 0.81, serum osmolality 269, bilirubin 1.4, liver enzymes normal. Beta natriuretic peptide pending. Albumin 2.7. Stool guaiac is positive. Chest x-ray shows right middle lobe opacity, stable, having been present on several recent x-rays, showing no significant change with some cephalization, especially on the right compared to the left. ASSESSMENT: 1. Acute exacerbation of chronic gastrointestinal hemorrhage with associated anemia. 2. Significant weakness, possibly related to underlying anemia state with an acute exacerbation versus other metabolic or deconditioning reasons. The patient is unable to adequately care for himself and is at increased fall risk. 3. History of atrial fibrillation with further followup necessary. 4. Recent left arm apparent IV infiltration versus infection with desquamation of the skin. 5. Recent acute central artery thrombosis, right eye, with resultant blindness while on Xarelto medication. 6. History of dehydration and moderate malnutrition. 7. History of adenocarcinoma, rule out metastatic disease. PLAN: The patient is placed in the hospital for overnight observation. Recheck laboratory studies in the morning. We will check CT scan of the chest to evaluate for the possibility of underlying metastatic disease in the right middle lobe and right perihilar region. Continue with warm compresses to the left arm. Observe atrial fibrillation and rate control. Treat for possible upper gastrointestinal hemorrhage and reevaluate in the morning. Must consider physical therapy evaluation to check on the patient's ability to respond to rehabilitation with strengthening and to help reduce risk of fall and may benefit from Swing Bed rehabilitation for several days' treatment. #[id number] [facility]
--- NOTE | 2017-06-29 15:56 | CT ---
EXAM DESCRIPTION: Chest w/o Contrast CLINICAL HISTORY: right hilar lesion. Hx adenoca COMPARISON: Chest radiograph June 29, 2017 TECHNIQUE: Chest CT was performed without IV contrast. This exam was performed according to our departmental dose-optimization program, which includes automated exposure control, adjustment of the mA and/or kV according to patient size and/or use of iterative reconstruction technique. FINDINGS: There are mural calcifications in the thoracic aorta without aneurysm. The main pulmonary artery is not dilated. Coronary artery calcifications are noted. There are tiny bilateral pleural effusions. The heart appears enlarged. No pericardial effusion. There are several slightly enlarged right hilar and paratracheal lymph nodes measuring up to 11 or 12 mm short axis diameter. No left hilar adenopathy is seen with sensitivity for detection of adenopathy limited by lack of IV contrast. The central airways are clear. There are patchy areas of airspace consolidation in both lungs, right greater than left.. Is a worse in the right middle lobe. No discrete lung mass is identified. Is a calcified granuloma in the left lower lobe. There is a 1.6 cm round low density lesion in the dome of the liver, too small to accurately characterize. Visualized portions of the upper abdomen are otherwise unremarkable for noncontrast technique. No concerning bone lesion. IMPRESSION: Bilateral airspace consolidation, worse in the right middle lobe, with small bilateral pleural effusions, mediastinal and right hilar adenopathy. Findings are most consistent with pneumonia especially involving the right middle lobe. Superimposed edema should also be considered. Given provided history of adenocarcinoma, follow-up chest radiograph or chest CT after treatment is recommended to document complete resolution. Cardiomegaly and coronary artery disease. Small round low density lesion in the dome of the liver, nonspecific. This may represent a cyst or other benign lesion. Metastatic disease is considered less likely but not completely excluded. Electronically signed by: Tan Jacome MD 06/29/2017 3:55 PM CDT
[2017-06-29] MEDS: BIFIDOBACTERIUM INFANTIS 4 MG CAP PO SCH (16:00)
[2017-06-29] MEDS: PANTOPRAZOLE SODIUM IV 40 MG VIAL IV SCH (16:04)
[2017-06-29] MEDS ORDERED: SUCRALFATE 1 GM TAB PO SCH (16:30)
[2017-06-29] MEDS: ALBUTEROL SULFATE 2.5 MG/3 ML VIAL NEB SCH ×2 (17:55→19:50)
[2017-06-29] MEDS: DOXYCYCLINE HYCLATE CAP 100 MG CAP PO SCH (21:19)
[2017-06-29] MEDS: SODIUM CHLORIDE 0.9% (FLUSH) 10 ML SYG IV PRN (21:19)
[2017-06-29] MEDS: SUCRALFATE 1 GM/10 ML 1 GM UD PO SCH (21:19)
[2017-06-30] MEDS: SUCRALFATE 1 GM/10 ML 1 GM UD PO SCH ×4 (06:52→21:18)
[2017-06-30] MEDS: PANTOPRAZOLE SODIUM IV 40 MG VIAL IV SCH (06:52)
[2017-06-30] MEDS: ALBUTEROL SULFATE 2.5 MG/3 ML VIAL NEB SCH ×4 (08:25→20:15)
[2017-06-30] MEDS: BIFIDOBACTERIUM INFANTIS 4 MG CAP PO SCH ×2 (08:34→21:18)
[2017-06-30] MEDS: FERROUS SULFATE 325 MG TAB PO SCH (08:34)
[2017-06-30] MEDS: DOXYCYCLINE HYCLATE CAP 100 MG CAP PO SCH (08:34)
[2017-06-30] MEDS: CITALOPRAM HBR 20 MG TAB PO SCH (08:37)
[2017-06-30] MEDS ORDERED: METOPROLOL SUCCINATE XL 25 MG TAB PO SCH (09:00)
[2017-06-30] MEDS ORDERED: AZITHROMYCIN IV 500 MG in SODIUM CHLORIDE 0.9% 250ML 250 ML IVPB SCH (09:30)
[2017-06-30] MEDS ORDERED: METOPROLOL TARTRATE 25 MG TAB PO ONE (09:41)
[2017-06-30] MEDS: levoFLOXacin 750MG IV 750 MG in PREMIX BAG 1 BAG IVPB SCH (10:02)
[2017-06-30] MEDS ORDERED: METOPROLOL TARTRATE 25 MG TAB ONE (10:04)
[2017-06-30] MEDS ORDERED: SODIUM CHLORIDE 0.9% 250ML 250 ML ONE (12:54)
[2017-06-30] MEDS ORDERED: AZITHROMYCIN IV 500 MG VIAL IVPB ONE (12:54)
[2017-06-30] MEDS: ASPIRIN EC 81 MG TAB PO SCH (13:00)
[2017-06-30] MEDS: CLOPIDOGREL 75 MG TAB PO SCH (13:00)
[2017-06-30] MEDS: AZITHROMYCIN IV 500 MG in SODIUM CHLORIDE 0.9% 250ML 250 ML IVPB SCH (13:01)
--- NOTE | 2017-06-30 13:39 | PN ---
DATE: 06/30/17 SUBJECTIVE: The patient is lying in the bed, able to get up and sit in the chair. He is noted to have an elevated pulse rate today of 120s up to 160 with exertion. Physical therapy is evaluating for his rehab potential because of the significant problem with deconditioning and weakness noted. Coloration is still quite pale. It is of note that he was on Xarelto because of the atrial fibrillation, but this was stopped after the significant gastrointestinal bleed. His atrial fibrillation persists with poor rate control with only metoprolol 25 mg succinate long-acting being given daily and he will require more. OBJECTIVE: VITAL SIGNS: afebrile. Pulse was 120 and irregular. Blood pressure 169/74. Pulse oximetry 97%, down to 92% on room air. GENERAL: In some ways, he says that he feels a little stronger, but still having difficulty being able to get up out of a chair without assistance. His appetite is slowly improving, but will require an extended period of rehabilitation to get back to the point he will be safe in returning home. HEART: Tones are irregular and rapid and will require augmentation of increasing of the beta blockade to assist with rate control. Also, a decision for anticoagulation is necessary because of the ongoing, persistent atrial fibrillation. EKG pending. CT scan of the chest was performed because of the persistence of the right middle lobe, right hilar infiltrative process. Still the appearance shows possible pneumonia involving right, but also left side, more prominent on the right, and will be treated accordingly, yet followup suggested, especially with the right perihilar adenopathy noted, possibly suggesting the underlying presence of a neoplastic process. LUNGS: Generally clear to auscultation. NEUROLOGIC: the patient is otherwise awake and alert. Condition discussed with the . Condition also discussed with Dr. Gallegos who will assist in followup of the patient at the next Wednesday clinic. ASSESSMENT: 1. Acute exacerbation of chronic gastrointestinal hemorrhage with stool guaiac positive with anemia, hemoglobin otherwise stable at this time, possibly initially augmented by the Xarelto started because of atrial fibrillation, now with Xarelto stopped. 2. History of recent onset atrial fibrillation, currently with poor rate control, requiring augmentation of beta blockade to assist with rate control and cardiac evaluation and followup suggested with echocardiograms, etc. Anticoagulation to be restarted utilizing antiplatelet, baby aspirin and Plavix. 3. Significant weakness, probably related to the underlying anemic state, yet continue evaluation for underlying ischemic coronary disease as well as underlying pneumonia process contributing to significant deconditioning. 4. Right middle lobe pneumonia noted on CT scan, possibly inadequately and incompletely treated after recent hospitalization requiring repeat blood cultures and initiation of parenteral therapy including Levaquin and azithromycin. This can be continued on a prolonged basis to assist with further resolution while on Swing Bed rehabilitation. 5. Recent left arm apparent IV infiltration with some skin changes with desquamation with local treatment to continue. 6. Recent acute central artery thrombosis, right eye, with resultant blindness after initial initiation of Xarelto medication. 7. History of dehydration and moderate malnutrition. 8. History of adenocarcinoma of the colon requiring two exploratory and excisional surgeries, must rule out presence of metastatic disease process and may benefit by followup with Dr. Becker in clinic. PLAN: We will reevaluate with increased beta blockade to evaluate or improved rate control. The patient started on Levaquin and azithromycin parenterally for underlying pneumonia which may be contributing to the significant weakened state. Try antiplatelet medication. Stop the Xarelto complete and try aspirin and Plavix instead and observe closely. Consider physical therapy rehabilitation on Swing Bed with continued IV therapy in an effort to allow the patient to improve and get stronger so he will be able to safely return home with decision by tomorrow, hopefully. #[id number] [facility]
[2017-06-30] MEDS ORDERED: METOPROLOL TARTRATE 50 MG TAB PO SCH (17:00)
[2017-07-01] MEDS: PANTOPRAZOLE SODIUM IV 40 MG VIAL IV SCH (06:42)
[2017-07-01] MEDS: SUCRALFATE 1 GM/10 ML 1 GM UD PO SCH ×3 (06:43→14:39)
[2017-07-01] MEDS: SODIUM CHLORIDE 0.9% (FLUSH) 10 ML SYG IV PRN (06:43)
[2017-07-01] MEDS: ALBUTEROL SULFATE 2.5 MG/3 ML VIAL NEB SCH ×2 (07:49→15:31)
[2017-07-01] MEDS ORDERED: METOPROLOL TARTRATE 50 MG TAB PO SCH ×2 (09:00→17:00)
[2017-07-01] MEDS: CITALOPRAM HBR 20 MG TAB PO SCH (10:00)
[2017-07-01] MEDS: FERROUS SULFATE 325 MG TAB PO SCH (10:00)
[2017-07-01] MEDS: BIFIDOBACTERIUM INFANTIS 4 MG CAP PO SCH (10:00)
[2017-07-01] MEDS: CLOPIDOGREL 75 MG TAB PO SCH (10:00)
[2017-07-01] MEDS: levoFLOXacin 750MG IV 750 MG in PREMIX BAG 1 BAG IVPB SCH (10:03)
[2017-07-01] MEDS: ASPIRIN EC 81 MG TAB PO SCH (10:03)
[2017-07-01] MEDS ORDERED: SODIUM CHLORIDE 0.9% 250ML 250 ML ONE (11:18)
[2017-07-01] MEDS ORDERED: AZITHROMYCIN IV 500 MG VIAL IVPB ONE (11:18)
[2017-07-01] MEDS: AZITHROMYCIN IV 500 MG in SODIUM CHLORIDE 0.9% 250ML 250 ML IVPB SCH (11:41)
[2017-07-01] MEDS ORDERED: LEVALBUTEROL NEBS 0.63 MG/3 ML VIAL NEB ONE (13:24)
[2017-07-01] MEDS ORDERED: LEVALBUTEROL NEBS 0.63 MG/3 ML VIAL NEB SCH (16:00)
[2017-07-01 18:30] VITALS: BP 109/65; TEMP 97.5; O2SAT 94
--- NOTE | 2017-07-01 21:06 | DS ---
DISCHARGE DIAGNOSIS: 1. Acute exacerbation of chronic gastrointestinal hemorrhage with stool guaiac positive with associated anemia with hemoglobin otherwise stable at this time having started initially while on Xarelto because of atrial fibrillation with now Xarelto having stopped. 2. History of recent onset atrial fibrillation with rapid ventricular response requiring modification of beta blockade to assist with rate control with further cardiac evaluation and followup suggested with echocardiograms, etc. Anticoagulation initially with Xarelto which is now stopped because of significant bleeding problems now on baby aspirin and Plavix. 3. Significant weakness probably related to significant deconditioning but also probably related to the underlying pneumonia process and the recent GI hemorrhage state. 4. Right middle lobe pneumonia noted on chest x-ray and CT scan persistent even after treatment and requiring additional treatment with close followup because if it persists, must also evaluate for possible underlying neoplastic process with associated perihilar adenopathy. 5. Significant weakness and deconditioning and inability to walk with markedly diminished appetite and nutritional intake requiring Swing Bed rehabilitation for strengthening until the patient is able to be strong enough to safely return home with reduced risk of falling, etc. 6. Recent left arm apparent IV infiltration with some skin changes with desquamation. Local treatment to be continued. Onset with probably infiltrated IV site with antibiotics at [facility]. 7. 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 This was noted after the initial initiation of Xarelto medication. 8. History of dehydration and moderate malnutrition. 9. History of an adenocarcinoma of the colon requiring 2 exploratory and excisional surgeries with the patient possibly benefitting by further followup with Oncology and Hematology such as Dr. Becker in the clinic. HISTORY OF PRESENT ILLNESS: This 81 year-old white male was placed in the hospital on 06/29/17 with worsening weakness being unable to walk and not eating. Even the thought of food "turns his stomach." The weakness has been getting progressively worse over the last 2 to 3 months after the onset of atrial fibrillation. He was started on Xarelto but developed a "clot behind the right eye" resulting in blindness shortly after starting the Xarelto. The Xarelto was continued, then he developed significant gastrointestinal bleeding and was admitted to the [facility] for pneumonia as well. Infiltration of an IV there resulted in some swelling and some peeling of the skin of his left arm. He was sent to [facility] where he had a hemoglobin in the low 70s and was eventually discharged home, but became weaker and his primary care doctor, Dr. Hernandez in [place] referred him to the hospital for 2 units of packed red blood cells when his hemoglobin was 7.4. He felt a little better for a while then was sent home on Doxycycline because of his left arm infection. Persistent right middle lobe infiltrative process was noted on chest x-ray. His general condition at home worsened to the point he was able to be placed in the hospital again for observation to continue the evaluation to see if an underlying gastrointestinal bleed had worsened and was found to have a very rapid atrial fibrillation between 125 and 150 depending upon his activity level. He was on Metoprolol succinate 25 mg a day which was increased to the tartrate twice a day dose to eventually show some slight improvement in the rate of the ventricle. LABORATORY: Hemoglobin has dropped to 9. Chemistry shows his potassium dropped to 3.4 with supplementation initiated. His BUN was normal at 13, creatinine of 0.79, glucose was 112 on discharge from [facility]. Because of the marked fatigue, troponin was drawn to at least evaluate for underlying ischemic coronary disease and the results on 2 occasions were zero. Beta natriuretic peptide was 153. Albumin 2.6, cholesterol 83, TSH 1.06. Urinalysis showed some ketonuria, otherwise clean. Stool guaiacs were positive on one occasion and negative on another specimen. Blood cultures are negative. Chest x-ray revealed an infiltrate in the right middle lobe and CT scan was performed because of the persistence of this infiltrate now for a number of weeks even after treatment. It revealed a bilateral airspace consolidation worse in the right middle lobe with small bilateral pleural effusions mediastinal and right hilar adenopathy. It was consistent with a pneumonia but further followup suggested after treatment to rule out any other metastatic process. A small round low density lesion noted in the dome of the liver, nonspecific at this time. HOSPITAL COURSE: The patient had shown some fairly significant improvement on the day of discharge. He was initially having marked difficulty even ambulating and will require specialized treatment to help improve his strength and his ability to walk, and reduce his risk of falling. For this reason, he is discharged from [facility] and admitted to the Swing Bed status. PAST MEDICAL HISTORY: 1. Recent onset atrial fibrillation. 2. Hyperlipidemia. 3. Obstructive sleep apnea. 4. Peptic ulcer disease. 5. Colon cancer requiring surgery on 2 occasions, adenocarcinoma. 6. 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 PAST SURGICAL HISTORY: 1. Arthroscopy of the knee. 2. Cataract removal. 3. Colon resection with 2 surgeries with hemicolectomy for cancer. 4. Thoracic kyphoplasty. OUTPATIENT MEDICATIONS: Please refer to nursing notes for list of verified home medications. ALLERGIES: NO KNOWN DRUG ALLERGIES. FAMILY HISTORY: Positive for cancer. SOCIAL HISTORY: He is . He has 6 children. He has a past history of cigarette smoking, but he quit in 1973. He denies alcohol at this time. REVIEW OF SYSTEMS: GENERAL: Significant fatigue, unable to even ambulate or adequately eat and not drinking well either. No fever or chills. HEENT: Significant vision loss in the right eye. LUNGS: Mild shortness of breath, was coughing. No hemoptysis. CARDIOVASCULAR: No significant palpitations or chest pains, but a history of atrial fibrillation. GASTROINTESTINAL: The patient does have some mild abdominal discomfort, especially epigastrium with some black stools. GENITOURINARY: No dysuria, but he has marked incontinence of urine. NEUROLOGIC: Extreme weakness. No significant headaches or seizures. PHYSICAL EXAMINATION: VITAL SIGNS: See vitals. GENERAL: The patient appears to be more alert now compared to when he was admitted to the hospital on Observation. NECK: Supple with no carotid bruits. CHEST: Lungs have some diminished breath sounds especially no the right compared to the left. CARDIOVASCULAR: Heart tones have irregularities with pulse rate in the upper 80s and 90s. ABDOMEN: Mild tenderness, especially in the epigastric right upper quadrant as well as the left side of the abdomen with no rebound tenderness or organomegaly otherwise evident. SKIN: His general skin is somewhat pale, yet with good muscle tone. NEUROLOGIC: No focal neurological deficits other than the loss of vision in his right eye. The patient is generally very weak requiring some assistance to get up out of the bed. PLAN: The patient will be admitted to Swing Bed rehabilitation and will continue until he is able to safely return home with stronger abilities to care for himself and prevent injuries from fall. Continue treatment of the underlying pneumonia with repeat followup of a chest x-ray in 2 days. Eventually will be able to be discharged and be followed-up in the clinic with followup with Dr. Ayo Hernandez. #[id number] [facility]
== END 2017-07-01 19:03 | disposition swing bed (61) ==
LOC: ER 10:49 → INTOOBSV 15:10 → MS 15:10 → UNDOADMOB 15:10 → MS 07-01 19:02 → UNDOADMOB 07-01 19:02 → UNDODISOB 07-01 19:03
PROVIDERS: ADMIT Emergency Medicine; ATTEND Emergency Medicine
DX: K92.2 Gastrointestinal hemorrhage, unspecified (principal); D50.0 Iron deficiency anemia secondary to blood loss (chronic); J18.9 Pneumonia, unspecified organism; E44.0 Moderate protein-calorie malnutrition; R53.1 Weakness; I48.91 Unspecified atrial fibrillation; E86.0 Dehydration; H54.61 Unqualified visual loss, right eye, normal vision left eye; E78.5 Hyperlipidemia, unspecified; G47.33 Obstructive sleep apnea (adult) (pediatric); Z79.01 Long term (current) use of anticoagulants; Z79.82 Long term (current) use of aspirin; Z79.899 Other long term (current) drug therapy; Z86.718 Personal history of other venous thrombosis and embolism; Z85.038 Personal history of other malignant neoplasm of large intestine; Z87.11 Personal history of peptic ulcer disease; Z68.34 Body mass index [BMI] 34.0-34.9, adult; Z87.891 Personal history of nicotine dependence
CPT/HCPCS: 36415 ×5; 71010; 71250; 80048; 80053 ×2; 80061; 81001; 82270 ×2; 83880; 84443; 84484 ×2; 85025 ×3; 87040 ×2; 94640 ×7; 94760 ×4; 96365; 96366 ×2; 96367; 96375; 96376 ×2; 97116 ×4; 97162; 99284; G0378; G8978; G8979; J0456 ×2; J1956 ×2; J7050 ×2; J7611 ×7; J7614 ×2

== ENCOUNTER 2017-07-01 19:22 | Inpatient (IN) | payer MEDICARE ==
--- NOTE | 2017-07-01 19:24 | HP ---
DISCHARGE DIAGNOSIS: 1. Acute exacerbation of chronic gastrointestinal hemorrhage with stool guaiac positive with associated anemia with hemoglobin otherwise stable at this time having started initially while on Xarelto because of atrial fibrillation with now Xarelto having stopped. 2. History of recent onset atrial fibrillation with rapid ventricular response requiring modification of beta blockade to assist with rate control with further cardiac evaluation and followup suggested with echocardiograms, etc. Anticoagulation initially with Xarelto which is now stopped because of significant bleeding problems now on baby aspirin and Plavix. 3. Significant weakness probably related to significant deconditioning but also probably related to the underlying pneumonia process and the recent GI hemorrhage state. 4. Right middle lobe pneumonia noted on chest x-ray and CT scan persistent even after treatment and requiring additional treatment with close followup because if it persists, must also evaluate for possible underlying neoplastic process with associated perihilar adenopathy. 5. Significant weakness and deconditioning and inability to walk with markedly diminished appetite and nutritional intake requiring Swing Bed rehabilitation for strengthening until the patient is able to be strong enough to safely return home with reduced risk of falling, etc. 6. Recent left arm apparent IV infiltration with some skin changes with desquamation. Local treatment to be continued. Onset with probably infiltrated IV site with antibiotics at [facility]. 7. 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 This was noted after the initial initiation of Xarelto medication. 8. History of dehydration and moderate malnutrition. 9. History of an adenocarcinoma of the colon requiring 2 exploratory and excisional surgeries with the patient possibly benefitting by further followup with Oncology and Hematology such as Dr. Becker in the clinic. HISTORY OF PRESENT ILLNESS: This 81 year-old white male was placed in the hospital on 06/29/17 with worsening weakness being unable to walk and not eating. Even the thought of food "turns his stomach." The weakness has been getting progressively worse over the last 2 to 3 months after the onset of atrial fibrillation. He was started on Xarelto but developed a "clot behind the right eye" resulting in blindness shortly after starting the Xarelto. The Xarelto was continued, then he developed significant gastrointestinal bleeding and was admitted to the [facility] for pneumonia as well. Infiltration of an IV there resulted in some swelling and some peeling of the skin of his left arm. He was sent to [facility] where he had a hemoglobin in the low 70s and was eventually discharged home, but became weaker and his primary care doctor, Dr. Hernandez in [place] referred him to the hospital for 2 units of packed red blood cells when his hemoglobin was 7.4. He felt a little better for a while then was sent home on Doxycycline because of his left arm infection. Persistent right middle lobe infiltrative process was noted on chest x-ray. His general condition at home worsened to the point he was able to be placed in the hospital again for observation to continue the evaluation to see if an underlying gastrointestinal bleed had worsened and was found to have a very rapid atrial fibrillation between 125 and 150 depending upon his activity level. He was on Metoprolol succinate 25 mg a day which was increased to the tartrate twice a day dose to eventually show some slight improvement in the rate of the ventricle. LABORATORY: Hemoglobin has dropped to 9. Chemistry shows his potassium dropped to 3.4 with supplementation initiated. His BUN was normal at 13, creatinine of 0.79, glucose was 112 on discharge from [facility]. Because of the marked fatigue, troponin was drawn to at least evaluate for underlying ischemic coronary disease and the results on 2 occasions were zero. Beta natriuretic peptide was 153. Albumin 2.6, cholesterol 83, TSH 1.06. Urinalysis showed some ketonuria, otherwise clean. Stool guaiacs were positive on one occasion and negative on another specimen. Blood cultures are negative. Chest x-ray revealed an infiltrate in the right middle lobe and CT scan was performed because of the persistence of this infiltrate now for a number of weeks even after treatment. It revealed a bilateral airspace consolidation worse in the right middle lobe with small bilateral pleural effusions mediastinal and right hilar adenopathy. It was consistent with a pneumonia but further followup suggested after treatment to rule out any other metastatic process. A small round low density lesion noted in the dome of the liver, nonspecific at this time. HOSPITAL COURSE: The patient had shown some fairly significant improvement on the day of discharge. He was initially having marked difficulty even ambulating and will require specialized treatment to help improve his strength and his ability to walk, and reduce his risk of falling. For this reason, he is discharged from [facility] and admitted to the Swing Bed status. PAST MEDICAL HISTORY: 1. Recent onset atrial fibrillation. 2. Hyperlipidemia. 3. Obstructive sleep apnea. 4. Peptic ulcer disease. 5. Colon cancer requiring surgery on 2 occasions, adenocarcinoma. 6. 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 PAST SURGICAL HISTORY: 1. Arthroscopy of the knee. 2. Cataract removal. 3. Colon resection with 2 surgeries with hemicolectomy for cancer. 4. Thoracic kyphoplasty. OUTPATIENT MEDICATIONS: Please refer to nursing notes for list of verified home medications. ALLERGIES: NO KNOWN DRUG ALLERGIES. FAMILY HISTORY: Positive for cancer. SOCIAL HISTORY: He is . He has 6 children. He has a past history of cigarette smoking, but he quit in 1973. He denies alcohol at this time. REVIEW OF SYSTEMS: GENERAL: Significant fatigue, unable to even ambulate or adequately eat and not drinking well either. No fever or chills. HEENT: Significant vision loss in the right eye. LUNGS: Mild shortness of breath, was coughing. No hemoptysis. CARDIOVASCULAR: No significant palpitations or chest pains, but a history of atrial fibrillation. GASTROINTESTINAL: The patient does have some mild abdominal discomfort, especially epigastrium with some black stools. GENITOURINARY: No dysuria, but he has marked incontinence of urine. NEUROLOGIC: Extreme weakness. No significant headaches or seizures. PHYSICAL EXAMINATION: VITAL SIGNS: See vitals. GENERAL: The patient appears to be more alert now compared to when he was admitted to the hospital on Observation. NECK: Supple with no carotid bruits. CHEST: Lungs have some diminished breath sounds especially no the right compared to the left. CARDIOVASCULAR: Heart tones have irregularities with pulse rate in the upper 80s and 90s. ABDOMEN: Mild tenderness, especially in the epigastric right upper quadrant as well as the left side of the abdomen with no rebound tenderness or organomegaly otherwise evident. SKIN: His general skin is somewhat pale, yet with good muscle tone. NEUROLOGIC: No focal neurological deficits other than the loss of vision in his right eye. The patient is generally very weak requiring some assistance to get up out of the bed. PLAN: The patient will be admitted to Swing Bed rehabilitation and will continue until he is able to safely return home with stronger abilities to care for himself and prevent injuries from fall. Continue treatment of the underlying pneumonia with repeat followup of a chest x-ray in 2 days. Eventually will be able to be discharged and be followed-up in the clinic with followup with Dr. Ayo Hernandez. #[id number] [facility]
[2017-07-01] MEDS ORDERED: ACETAMINOPHEN 500 MG TAB PO PRN (20:00)
[2017-07-01] MEDS ORDERED: MAGNESIUM HYDROXIDE 30 ML UD PO PRN (20:00)
[2017-07-01] MEDS ORDERED: SODIUM PHOS/BIPHOS ENEMA ADULT 133 ML BTTL PR PRN (20:00)
[2017-07-01] MEDS ORDERED: HYDROcodone 5MG/APAP 325MG 1 EA TAB PO PRN (20:00)
[2017-07-01] MEDS: SUCRALFATE 1 GM/10 ML 1 GM UD PO SCH (21:15)
[2017-07-01] MEDS: SODIUM CHLORIDE 0.9% (FLUSH) 10 ML SYG IV SCH (21:15)
[2017-07-02] MEDS: SUCRALFATE 1 GM/10 ML 1 GM UD PO SCH ×4 (06:35→20:37)
[2017-07-02] MEDS ORDERED: AZITHROMYCIN 250 MG TAB PO ONE (08:04)
[2017-07-02] MEDS ORDERED: levoFLOXacin 750MG IV 0 ML IVPB ONE (08:06)
[2017-07-02] MEDS: LEVALBUTEROL NEBS 0.63 MG/3 ML VIAL INH SCH ×4 (08:40→23:52)
[2017-07-02] MEDS: CITALOPRAM HBR 20 MG TAB PO SCH (08:41)
[2017-07-02] MEDS: AZITHROMYCIN 250 MG TAB PO SCH (08:41)
[2017-07-02] MEDS: ASPIRIN EC 81 MG TAB PO SCH (08:41)
[2017-07-02] MEDS: BIFIDOBACTERIUM INFANTIS 4 MG CAP PO SCH (08:41)
[2017-07-02] MEDS: METOPROLOL TARTRATE 50 MG TAB PO SCH (08:41)
[2017-07-02] MEDS: POTASSIUM CHLORIDE 10 MEQ TAB PO SCH (08:42)
[2017-07-02] MEDS: CLOPIDOGREL 75 MG TAB PO SCH (08:42)
[2017-07-02] MEDS: DOCUSATE SODIUM 100 MG CAP PO SCH (08:42)
[2017-07-02] MEDS: PANTOPRAZOLE SODIUM TAB 40 MG PO SCH (08:42)
[2017-07-02] MEDS: FERROUS SULFATE 325 MG TAB PO SCH (08:42)
[2017-07-02] MEDS: CALCIUM CARBONATE-VITAMIN D 500 MG TAB PO SCH (08:42)
[2017-07-02] MEDS: SODIUM CHLORIDE 0.9% (FLUSH) 10 ML SYG IV SCH ×2 (08:42→20:37)
[2017-07-02] MEDS: CHOLECALCIFEROL 1000 UNIT PO SCH (08:43)
[2017-07-02] MEDS ORDERED: levoFLOXacin 750MG IV 750 MG in PREMIX BAG 1 BAG IVPB SCH (09:00)
[2017-07-02] MEDS: levoFLOXacin 500 MG TAB PO SCH (11:00)
[2017-07-02] MEDS: METOPROLOL TARTRATE 25 MG TAB PO SCH (17:37)
[2017-07-03] MEDS: SUCRALFATE 1 GM/10 ML 1 GM UD PO SCH ×4 (06:41→21:04)
--- NOTE | 2017-07-03 06:46 | RAD ---
EXAM DESCRIPTION: Chest,2 Views CLINICAL HISTORY: RML Pneumonia COMPARISON: 06/29/2017 FINDINGS: Frontal and lateral views of the chest. Metastatic calcification aortic arch. Heart is not enlarged. Diffuse patchy bilateral interstitial and fibular opacities. Left midlung granuloma. Leads overlie the chest. More confluent right infrahilar airspace opacity. No pneumothorax No displaced rib fractures identified. Upper abdominal soft tissues are unremarkable. IMPRESSION: 1. Interval increase in diffuse bilateral patchy airspace and interstitial opacities, most confluent in the right infrahilar region. These findings could be seen with alveolar and interstitial edema however pneumonic process is also a possibility. Continued radiographic follow-up recommended. Electronically signed by: Sanju Madrid 07/03/2017 6:45 AM CDT
[2017-07-03] MEDS: FERROUS SULFATE 325 MG TAB PO SCH (08:35)
[2017-07-03] MEDS: SODIUM CHLORIDE 0.9% (FLUSH) 10 ML SYG IV SCH ×2 (08:35→21:15)
[2017-07-03] MEDS: CITALOPRAM HBR 20 MG TAB PO SCH (08:35)
[2017-07-03] MEDS: ASPIRIN EC 81 MG TAB PO SCH (08:35)
[2017-07-03] MEDS: CHOLECALCIFEROL 1000 UNIT PO SCH (08:35)
[2017-07-03] MEDS: BIFIDOBACTERIUM INFANTIS 4 MG CAP PO SCH (08:35)
[2017-07-03] MEDS: CALCIUM CARBONATE-VITAMIN D 500 MG TAB PO SCH (08:35)
[2017-07-03] MEDS: DOCUSATE SODIUM 100 MG CAP PO SCH (08:35)
[2017-07-03] MEDS: CLOPIDOGREL 75 MG TAB PO SCH (08:35)
[2017-07-03] MEDS: PANTOPRAZOLE SODIUM TAB 40 MG PO SCH (08:35)
[2017-07-03] MEDS: METOPROLOL TARTRATE 50 MG TAB PO SCH (08:35)
[2017-07-03] MEDS: POTASSIUM CHLORIDE 10 MEQ TAB PO SCH (08:35)
[2017-07-03] MEDS: AZITHROMYCIN 250 MG TAB PO SCH (08:36)
[2017-07-03] MEDS: LEVALBUTEROL NEBS 0.63 MG/3 ML VIAL INH SCH (08:52)
[2017-07-03] MEDS: levoFLOXacin 500 MG TAB PO SCH (10:09)
[2017-07-03] MEDS ORDERED: LEVALBUTEROL NEBS 0.63 MG/3 ML VIAL NEB PRN (12:10)
[2017-07-03] MEDS: guaiFENesin ER TAB 600 MG TAB PO SCH ×2 (13:07→21:03)
--- NOTE | 2017-07-03 13:30 | PN ---
DATE: 07/03/17 SUPERVISING PHYSICIAN: Ayo Hernandez M.D. SUBJECTIVE: The patient is sitting up in bed. His family is at bedside. He has no complaints of shortness of breath except when ambulating. He has no complaints of palpitations, tachycardia, nausea, vomiting or diarrhea. He saw Dr. Gallegos yesterday and does not remember his instructions, but his did say he was going to take him off of Xarelto and put him on Plavix. OBJECTIVE: VITAL SIGNS: He is afebrile, heart rate 96 although it does get up into the low 100s with exertion. His blood pressure is 122/75, respiratory rate 18, O2 sat is 92% on room air. RESPIRATORY: Essentially clear to auscultation bilaterally. He is somewhat diminished at the bases. CARDIOVASCULAR: Irregular rhythm, regular rate. ABDOMEN: Soft, nondistended, non-tender. Bowel sounds are positive. EXTREMITIES: No cyanosis, clubbing or edema. NEUROLOGIC: He is awake, alert and oriented times three. There are no labs to report today. RADIOLOGY: Chest x-ray per radiology interpretation shows interval increase in diffuse bilateral patchy airspace and interstitial opacities most confluent in the right infrahilar region. These findings could be see with alveolar and interstitial edema, however pneumonic process is also a possibility. Continued radiographic followup recommended. All other labs and films have been reviewed via the EMR. ASSESSMENT: 1. Acute exacerbation of chronic gastrointestinal hemorrhage with stool guaiac positive and associated anemia. His hemoglobin is stabilized. He was on Xarelto initially which has now been stopped. 2. History of recent onset of atrial fibrillation with rapid ventricular response. He was seen by Dr. Gallegos, shell fisherman, yesterday. He is presently off of his Xarelto but is on aspirin and Plavix. 3. Significant weakness related to deconditioning as well as underlying pneumonia process and recent gastrointestinal hemorrhage. 4. Right middle lobe pneumonia noted on chest x-ray that persists presently on Levaquin. 5. Significant weakness and deconditioning and inability to walk with diminished appetite requiring Swing Bed rehabilitation for strengthening until the patient is strong enough to safely return home. 6. Recent left arm apparent IV infiltration that is now mostly resolved. 7. 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 8. History of dehydration and moderate malnutrition. 9. History of adenocarcinoma of the colon requiring 2 exploratory and excisional surgeries with the patient possibly benefitting by further followup with oncology and hematology. PLAN: We will continue present supportive care. We also will need to request the office note from Dr. Gallegos' office on Wednesday as we do not have any information on that. His x-ray was slightly worsened this morning and he is presently on Levaquin, but I will order Mucinex as well as percussion IPPB and aggressive pulmonary hygiene. Clinically he is much improved and feels stronger every day with his physical therapy. I will repeat his x-ray on Wednesday as recommended by the radiologist. He will continue strengthening and conditioning per physical therapy. We will continue to monitor him closely and followup as needed. Dr. Hernandez is the collaborating physician available for consultation. #[id number] [facility]
[2017-07-03] MEDS: LEVALBUTEROL NEBS 0.63 MG/3 ML VIAL NEB SCH ×2 (15:59→20:03)
[2017-07-03] MEDS: METOPROLOL TARTRATE 25 MG TAB PO SCH (17:34)
[2017-07-03] MEDS: TEMAZEPAM 15 MG CAP PO PRN (21:03)
[2017-07-04] MEDS: SUCRALFATE 1 GM/10 ML 1 GM UD PO SCH ×4 (06:38→20:37)
[2017-07-04] MEDS: CALCIUM CARBONATE-VITAMIN D 500 MG TAB PO SCH (07:42)
[2017-07-04] MEDS: POTASSIUM CHLORIDE 10 MEQ TAB PO SCH (07:42)
[2017-07-04] MEDS: METOPROLOL TARTRATE 50 MG TAB PO SCH (07:42)
[2017-07-04] MEDS: LEVALBUTEROL NEBS 0.63 MG/3 ML VIAL NEB SCH ×4 (08:56→19:50)
[2017-07-04] MEDS: FERROUS SULFATE 325 MG TAB PO SCH (09:32)
[2017-07-04] MEDS: ASPIRIN EC 81 MG TAB PO SCH (09:32)
[2017-07-04] MEDS: CITALOPRAM HBR 20 MG TAB PO SCH (09:32)
[2017-07-04] MEDS: DOCUSATE SODIUM 100 MG CAP PO SCH (09:32)
[2017-07-04] MEDS: BIFIDOBACTERIUM INFANTIS 4 MG CAP PO SCH (09:32)
[2017-07-04] MEDS: levoFLOXacin 500 MG TAB PO SCH (09:45)
[2017-07-04] MEDS: CLOPIDOGREL 75 MG TAB PO SCH (09:45)
[2017-07-04] MEDS: PANTOPRAZOLE SODIUM TAB 40 MG PO SCH (09:45)
[2017-07-04] MEDS: guaiFENesin ER TAB 600 MG TAB PO SCH ×2 (09:45→20:37)
[2017-07-04] MEDS: AZITHROMYCIN 250 MG TAB PO SCH (09:45)
[2017-07-04] MEDS: SODIUM CHLORIDE 0.9% (FLUSH) 10 ML SYG IV SCH (09:46)
[2017-07-04] MEDS: CHOLECALCIFEROL 1000 UNIT PO SCH (09:46)
[2017-07-04] MEDS: METOPROLOL TARTRATE 25 MG TAB PO SCH (17:18)
[2017-07-04] MEDS: TEMAZEPAM 15 MG CAP PO PRN (21:46)
[2017-07-05] MEDS: SUCRALFATE 1 GM/10 ML 1 GM UD PO SCH ×4 (06:41→21:30)
--- NOTE | 2017-07-05 06:54 | RAD ---
EXAM DESCRIPTION: Chest,2 Views CLINICAL HISTORY: pna COMPARISON: 07/03/2017 FINDINGS: Frontal and lateral views of the chest. Cardiomegaly. Atherosclerotic calcification aortic arch. Diffuse bilateral and interstitial opacities. No pneumothorax or definite pleural effusion. No displaced rib fractures identified. Upper abdominal soft tissues are unremarkable. IMPRESSION: 1. Cardiomegaly with possible alveolar and interstitial edema. Underlying right basilar pneumonic process is also a possibility. Continued follow-up recommended. Electronically signed by: Sanju Madrid 07/05/2017 6:53 AM CDT
[2017-07-05] MEDS: CALCIUM CARBONATE-VITAMIN D 500 MG TAB PO SCH (07:53)
[2017-07-05] MEDS: POTASSIUM CHLORIDE 10 MEQ TAB PO SCH (07:54)
[2017-07-05] MEDS: METOPROLOL TARTRATE 50 MG TAB PO SCH (07:54)
[2017-07-05] MEDS: LEVALBUTEROL NEBS 0.63 MG/3 ML VIAL NEB SCH ×3 (08:50→20:53)
[2017-07-05] MEDS: CITALOPRAM HBR 20 MG TAB PO SCH (09:48)
[2017-07-05] MEDS: BIFIDOBACTERIUM INFANTIS 4 MG CAP PO SCH (09:48)
[2017-07-05] MEDS: AZITHROMYCIN 250 MG TAB PO SCH (09:49)
[2017-07-05] MEDS: CHOLECALCIFEROL 1000 UNIT PO SCH (09:49)
[2017-07-05] MEDS: FERROUS SULFATE 325 MG TAB PO SCH (09:49)
[2017-07-05] MEDS: DOCUSATE SODIUM 100 MG CAP PO SCH (09:49)
[2017-07-05] MEDS: CLOPIDOGREL 75 MG TAB PO SCH (09:49)
[2017-07-05] MEDS: PANTOPRAZOLE SODIUM TAB 40 MG PO SCH (09:49)
[2017-07-05] MEDS: guaiFENesin ER TAB 600 MG TAB PO SCH ×2 (09:49→21:30)
--- NOTE | 2017-07-05 09:55 | PN ---
DATE: 07/05/17 SUBJECTIVE: The patient admits with his 's backup that he is feeling much improved today. He states his appetite is improved. When he first came in, the sight of smell of food made him sick. He has forced himself to eat and is feeling stronger. Before, he needed help to be able to sit up from the bed supine position and now he is able to get up without assistance. No further GI bleeding. He continues with rehabilitation. Still with a cough. He is receiving some percussion and drainage and is producing some clearish sputum. OBJECTIVE: VITAL SIGNS: Afebrile. Pulse 97. Blood pressure 122/72. Pulse oximetry 90% up to 93% on room air. Weight 109 kg yesterday, 107.8 kg today. LUNGS: Some diminished breath sounds bilaterally, but improved care to 3 or 4 days ago. Occasional rhonchi laterally, more on the right than the left. HEART : Regular. RADIOLOGY: Chest x-ray performed today, when compared to a couple of days ago, shows some improvement in the right middle lobe and right perihilar infiltrative size with some extensive alveolar and interstitial changes throughout both lung field evident. LABORATORY: Hemoglobin is up to 9.6 today from 9.0. White count is normal at 6 ,200 with 67% neutrophils. Chemistries show potassium up to 3.8, BUN 11, glucose 99. Blood cultures are negative from previous admission. ASSESSMENT: 1. Acute exacerbation of chronic gastrointestinal hemorrhage with stool guaiac positive and associated anemia. His hemoglobin is slightly elevated up to 9.6 with added nutrition and increased activity. Initial Xarelto has now been stopped. 2. History of recent onset of atrial fibrillation with rapid ventricular response having been seen by Dr. Gallegos. Xarelto is stopped and he continues on aspirin and Plavix anticoagulation as well as beta blockade for rate control. 3. Significant weakness requiring Swing Bed rehabilitation to assist with deconditioning and improved strength to assist with fall risk to continue until safe to return home. 4. Right middle lobe pneumonia, persistent, currently on Levaquin, showing clinical improvement, but also now some radiographic improvement compared to two days ago. 5. Significant weakness and deconditioning and inability to walk with diminished appetite, showing some improvement as Swing Bed rehabilitation continues. 6. Recent left arm apparent IV infiltration with antibiotics that were started several several weeks ago for underlying pneumonia at [facility], how showing some continued improvement of the discoloration and desquamation process. 7. 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 8. History of dehydration and moderate malnutrition. 9. History of adenocarcinoma of the colon requiring 2 exploratory and excisional surgeries with the patient eventually to be benefitted by followup with oncology and hematology, such as Dr. Becker, upon discharge. PLAN: Continue treatment. Discuss with diesel engine specialist and therapist to see how he is doing. Continue current antibiotic treatment course to assist with continued resolution of the significant pulmonary process. Continue with nutritional emphasis and pulmonary hygiene and bronchodilator therapy to continue. #[id number] [facility]
[2017-07-05] MEDS: ASPIRIN EC 81 MG TAB PO SCH (10:00)
[2017-07-05] MEDS: levoFLOXacin 500 MG TAB PO SCH (10:00)
[2017-07-05] MEDS ORDERED: LORazepam 0.5 MG TAB PO PRN (12:02)
[2017-07-05] MEDS: METOPROLOL TARTRATE 25 MG TAB PO SCH (17:15)
[2017-07-05] MEDS: TEMAZEPAM 15 MG CAP PO PRN (21:30)
[2017-07-06] MEDS: SUCRALFATE 1 GM/10 ML 1 GM UD PO SCH ×4 (06:26→21:24)
[2017-07-06] MEDS: PANTOPRAZOLE SODIUM TAB 40 MG PO SCH (06:26)
[2017-07-06] MEDS: ASPIRIN EC 81 MG TAB PO SCH (08:03)
[2017-07-06] MEDS: POTASSIUM CHLORIDE 10 MEQ TAB PO SCH (08:03)
[2017-07-06] MEDS: BIFIDOBACTERIUM INFANTIS 4 MG CAP PO SCH (08:03)
[2017-07-06] MEDS: FERROUS SULFATE 325 MG TAB PO SCH (08:04)
[2017-07-06] MEDS: guaiFENesin ER TAB 600 MG TAB PO SCH ×2 (08:04→21:24)
[2017-07-06] MEDS: DOCUSATE SODIUM 100 MG CAP PO SCH (08:04)
[2017-07-06] MEDS: CITALOPRAM HBR 20 MG TAB PO SCH (08:04)
[2017-07-06] MEDS: CALCIUM CARBONATE-VITAMIN D 500 MG TAB PO SCH (08:04)
[2017-07-06] MEDS: CLOPIDOGREL 75 MG TAB PO SCH (08:04)
[2017-07-06] MEDS: METOPROLOL TARTRATE 50 MG TAB PO SCH (08:04)
[2017-07-06] MEDS: CHOLECALCIFEROL 1000 UNIT PO SCH (08:04)
[2017-07-06] MEDS: LEVALBUTEROL NEBS 0.63 MG/3 ML VIAL NEB SCH ×4 (08:34→20:43)
[2017-07-06] MEDS: levoFLOXacin 500 MG TAB PO SCH (09:21)
--- NOTE | 2017-07-06 13:27 | PN ---
DATE: 07/06/17 SUBJECTIVE: The patient is lying in the bed. He quickly stated that he feels much better today than yesterday. Yesterday after visiting and examining the patient, he had an episode of extreme anxiety and shakiness which was significantly helped symptomatically by lorazepam p.o. 0.5 mg. At the present time, he is much more relaxed. He is ambulating nicely with the therapist and is encouraged to increase his ambulation frequently even without a therapist being present. No significant shortness of breath or cough. Appetite is improving steadily. OBJECTIVE: VITAL SIGNS: Afebrile. Pulse 71. Blood pressure 114/72. Pulse oximetry 97% on room air. Weight 108 kg. GENERAL: The patient is awake and alert. General coloration is still quite pale and will require further followup in the outpatient department. Some sunshine exposure may also assist. ABDOMEN: Soft. No significant obstipation. No significant cough or dyspnea at this time. Pulse oximetry is good. We will continue to check ambulation studies to determine any need for oxygen on exertion. ASSESSMENT: 1. Acute exacerbation of chronic gastrointestinal hemorrhage with stool guaiac positive and associated anemia. His hemoglobin is slightly elevated up to 9.6 with added nutrition and increased activity. Initial Xarelto has now been stopped. 2. History of recent onset of atrial fibrillation with rapid ventricular response having been seen by Dr. Gallegos. Xarelto is stopped and he continues on aspirin and Plavix anticoagulation as well as beta blockade for rate control. 3. Significant weakness requiring Swing Bed rehabilitation to assist with deconditioning and improved strength to assist with fall risk to continue until safe to return home. 4. Right middle lobe pneumonia, persistent, currently on Levaquin, showing clinical improvement, but also now some radiographic improvement compared to two days ago. 5. Significant weakness and deconditioning and inability to walk with diminished appetite, showing some improvement as Swing Bed rehabilitation continues. 6. Recent left arm apparent IV infiltration with antibiotics that were started several several weeks ago for underlying pneumonia at [facility], how showing some continued improvement of the discoloration and desquamation process. 7. 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 8. History of dehydration and moderate malnutrition. 9. History of adenocarcinoma of the colon requiring 2 exploratory and excisional surgeries with the patient eventually to be benefitted by followup with oncology and hematology, such as Dr. Becker, upon discharge. PLAN: We will increase activity level today with frequent ambulation. The is present. Plans for outpatient continued rehabilitation are important. Followup with Dr. Hernandez in the clinic after his discharge. Reevaluate in the morning with a chest x-ray to document improvement in the significant right middle lobe infiltrative process. This should be followed until it is completely cleared and if it does not complete clear, further investigation necessary. Suggest adding vitamin D and vitamin C to his home program to assist with ongoing healing. Special attention to nutrition and increased activity level. May benefit from lorazepam low dose p.o. p.r.n. anxiety episodes if he has that need in the future. #[id number] [facility]
[2017-07-06] MEDS: METOPROLOL TARTRATE 25 MG TAB PO SCH (18:27)
[2017-07-06] MEDS: TEMAZEPAM 15 MG CAP PO PRN (21:24)
[2017-07-06 22:35] VITALS: TEMP 97.9
[2017-07-07] MEDS: SUCRALFATE 1 GM/10 ML 1 GM UD PO SCH ×2 (06:27→10:45)
[2017-07-07] MEDS: PANTOPRAZOLE SODIUM TAB 40 MG PO SCH (06:27)
--- NOTE | 2017-07-07 06:46 | RAD ---
Procedure: XR CHEST 2 VIEWS Exam Date: 07/07/2017 Ordering Provider: ADRI LOPEZ MD Clinical Indication: RML Pneumonia Comparison: 07/05/2017 Findings: Cardiomediastinal silhouette is stable. Focal lung consolidation: Peripheral right lung is excluded from the exam on the frontal view. Patchy bilateral lung opacities are otherwise not significantly changed from prior. Pleural effusion: None Pneumothorax: None Acute bony or soft tissue abnormality: Osseous structures are stable. Impression: 1. Stable patchy bilateral lung opacities. 2. No other significant interval change. Electronically signed by: Paul Nelson MD 07/07/2017 6:41 AM CDT
[2017-07-07] MEDS: LEVALBUTEROL NEBS 0.63 MG/3 ML VIAL NEB SCH ×2 (08:14→12:11)
[2017-07-07] MEDS: POTASSIUM CHLORIDE 10 MEQ TAB PO SCH (08:15)
[2017-07-07] MEDS: METOPROLOL TARTRATE 50 MG TAB PO SCH (08:17)
[2017-07-07] MEDS: guaiFENesin ER TAB 600 MG TAB PO SCH (08:18)
[2017-07-07] MEDS: CITALOPRAM HBR 20 MG TAB PO SCH (08:18)
[2017-07-07] MEDS: CLOPIDOGREL 75 MG TAB PO SCH (08:18)
[2017-07-07] MEDS: FERROUS SULFATE 325 MG TAB PO SCH (08:18)
[2017-07-07] MEDS: CALCIUM CARBONATE-VITAMIN D 500 MG TAB PO SCH (08:18)
[2017-07-07] MEDS: BIFIDOBACTERIUM INFANTIS 4 MG CAP PO SCH (08:18)
[2017-07-07] MEDS: ASPIRIN EC 81 MG TAB PO SCH (08:19)
[2017-07-07] MEDS: DOCUSATE SODIUM 100 MG CAP PO SCH (08:19)
[2017-07-07] MEDS ORDERED: TAMSULOSIN 0.4 MG CAP ONE (08:37)
[2017-07-07 08:56] VITALS: BP 122/71
[2017-07-07] MEDS: CHOLECALCIFEROL 1000 UNIT PO SCH (09:21)
[2017-07-07] MEDS: levoFLOXacin 500 MG TAB PO SCH (10:46)
[2017-07-07 14:19] VITALS: O2SAT 96
--- NOTE | 2017-07-12 08:41 | DS ---
SUPERVISING PHYSICIAN: Yakov Peterson MD DISCHARGE DIAGNOSIS: 1. Acute exacerbation of chronic gastrointestinal bleed with stool guaiac positive and associated anemia. His hemoglobin on discharge is 9.6. He had initially been on Xarelto, which has been discontinued 2. History of recent onset of atrial fibrillation with rapid ventricular response. He was seen by Dr. Gallegos. The Xarelto was stopped and he continues on aspirin and Plavix as well as beta james for rate control. 3. Significant weakness requiring Swing Bed for strengthening and conditioning and to assist with fall risk to continue until safe to return home. 4. Right middle lobe pneumonia, persistent, presently on Levaquin, showing clinical improvement and on discharge, his x-rays show improvement. 5. Significant weakness and deconditioning, showing some improvement on Swing Bed admission. 6. IV infiltration to the left arm with antibiotics that were started several weeks ago for his underlying pneumonia at the [facility], now mostly resolved. 7. 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 8. History of dehydration and moderate malnutrition, improved. 9. History of adenocarcinoma of the colon requiring 2 exploratory and excisional surgeries with the patient to be benefitted by further followup with oncology and hematology upon discharge. HISTORY OF PRESENT ILLNESS: This is an 81-year-old, white male who was originally admitted to the hospital on 06/29/17 with worsening weakness and inability to walk as well as poor appetite. His weakness progressively worsened over the last two to three months after the new onset of atrial fibrillation. At that time, he was started on Xarelto, but developed a clot behind the right eye resulting in blindness shortly after starting the Xarelto. The Xarelto was continued, but he developed a significant GI bleed and was admitted to the [facility] for both the GI bleed and pneumonia. He also had infiltration of an IV in his left arm resulting in some swelling and some peeling of the skin of his left arm. He was sent to [facility] where he had a hemoglobin in the low 7s and was eventually discharged home. He became weaker and primary care physician, Dr. Hernandez in [place], referred to the hospital for transfusion of 2 units of packed red blood cells. At the time of admission, his hemoglobin was 7.4. He felt some better and was sent home on doxycycline and persistent right lower lobe pneumonia that was noted on chest x-ray. He was re-admitted to the hospital and to also evaluate the underlying GI bleed that had worsened. He was also found to have atrial fibrillation with rapid ventricular response with rates between 120 and 150 depending on his activity level. He was on metoprolol succinate 25 mg daily and he was seen by Dr. Gallegos and was increased to metoprolol tartrate twice and increased to 50 mg and had shown some improvement since. He was also started on Plavix and aspirin, but the Xarelto was discontinued. He continued to show improvement from his pneumonia as well as no further symptoms from the GI bleed, but due to multiple hospital admissions, he was discharged from the Acute Care setting and readmitted to [facility] Bed for strengthening and conditioning. He improved with strengthening and conditioning with physical therapy although his pneumonia was very slow to resolve. He continued on Levaquin antibiotics and aggressive pulmonary hygiene was ordered including percussion and IPPB. After several days of aggressive pulmonary hygiene as well as strengthening and conditioning with physical therapy and stable hemoglobin of 9.6 and hematocrit 30, he is to be discharged home. DISCHARGE PLAN: He will be discharged home in stable condition. He is to continue his previous medications and he is to see his primary care physician, Dr. Hernandez, on 07/12/17 at 2:15 PM. He is to increase his activity as tolerated and to resume his previous diet. He also has an evaluation with pulmonary rehab as he is a former smoker and smoked for many years. He is to return to the hospital or followup with Dr. Hernandez for any further problems or complications. DISCHARGE MEDICATIONS: 1. Loperamide. 2. Pantoprazole. 3. Acetaminophen Arthritis. 4. Vitamin D. 5. Crestor. 6. Ferrous sulfate. 7. Calcium carbonate with vitamin D. 8. Citalopram. 9. Xopenex. 10. Carafate. 11 Align. 12. Plavix. 13. Aspirin. 14. Metoprolol tartrate 50 mg q.a.m. and metoprolol tartrate 25 mg q.p.m. 15. Guaifenesin. 16. Lorazepam. 17. Temazepam. 18. Levaquin. Dr. Peterson is the collaborating physician and available for consultation. #[id number] [facility]
== END 2017-07-07 13:22 | disposition home or self-care (01) | DRG 194 ==
LOC: MS 19:22
PROVIDERS: ADMIT Emergency Medicine; ATTEND Nurse Practitioner Acute Care
DX: J18.9 Pneumonia, unspecified organism (principal); K92.2 Gastrointestinal hemorrhage, unspecified; E46 Unspecified protein-calorie malnutrition; H34.11 Central retinal artery occlusion, right eye; R53.1 Weakness; H54.61 Unqualified visual loss, right eye, normal vision left eye; R32 Unspecified urinary incontinence; D50.0 Iron deficiency anemia secondary to blood loss (chronic); E86.0 Dehydration; E78.5 Hyperlipidemia, unspecified; T80.89XD Other complications following infusion, transfusion and therapeutic injection, subsequent encounter; G47.33 Obstructive sleep apnea (adult) (pediatric); Z85.038 Personal history of other malignant neoplasm of large intestine; Z79.01 Long term (current) use of anticoagulants; Z87.891 Personal history of nicotine dependence; Z79.899 Other long term (current) drug therapy; Z86.73 Personal history of transient ischemic attack (TIA), and cerebral infarction without residual deficits

== ENCOUNTER → 2017-09-24 | Outpatient (CLI) | payer MEDICARE ==
--- NOTE | 2017-09-25 16:47 | CT ---
EXAM DESCRIPTION: Maxillofacial w/wo Contrast CLINICAL HISTORY: CHRONIC SINUSITIS J32.9 COMPARISON: None Available. TECHNIQUE: Spiral, axial 2.5 mm scans through the maxillofacial bones and paranasal sinuses without and with standard dose nonionic IV contrast. Sagittal and coronal 2.0 mm reconstructions before and after IV contrast. No adverse contrast reactions. Total Exam DLP: 1530.87 mGy-cm. This exam was performed according to our departmental CT dose-optimization program which includes automated exposure control, adjustment of the mA and/or kV according to patient size and/or use of iterative reconstruction technique; to reduce radiation dose to as low as reasonably achievable (ALARA). FINDINGS: Multiple focal small soft tissue nodular densities on the wall of the left maxillary antrum with the largest involving a partially closed anterior space in the antrum partially by a bony septation. This is abutting the floor of the anterior left orbit. Minimal mucoperiosteal thickening in the right antrum. No air-fluid levels bilaterally. Partial narrowing of the bilateral ostiomeatal units. Chronic mucoperiosteal thickening in the bilateral anterior ethmoid air cells with no air-fluid levels. Sphenoid air cells are unremarkable. Patent sphenoid nasal ostia. Frontal sinuses are well aerated and clear. No bone destruction. Bilateral turbinate mucosal hypertrophy mild to moderate with narrowing of the nasal passageways. Anterior septum deviated to the right. Mastoid air cells well aerated. Included in a structures and auditory ossicles grossly normal. IMPRESSION: 1. Small polyps or cysts on the wall of the left maxillary antrum with no air-fluid level. Anterior recess partially covered by bony septum just inferior to the anterior left orbit completely opacified by inflammatory process or polyp. Minimal chronic changes in the anterior ethmoid air cells. No air-fluid levels. 2. Other sinuses are unremarkable. Bilateral narrowing of the nasal passageways. Anterior and septal deviation. Electronically signed by: Ferny Elizondo MD 09/25/2017 4:46 PM [facility] Workstation: [id number]
== END | disposition home or self-care (01) ==
LOC: CT 10:30
PROVIDERS: ATTEND Family Medicine
DX: J32.9 Chronic sinusitis, unspecified (principal)

== ENCOUNTER → 2018-04-08 | Outpatient (CLI) | payer MEDICARE ==
--- NOTE | 2018-04-08 15:31 | RAD ---
EXAM DESCRIPTION: Tibia/Fibula,Left CLINICAL HISTORY: 82 years Male, PAIN IN LOWER LEG COMPARISON: None. FINDINGS: Three views of the left leg show a nondisplaced fracture involving the distal third of the left tibial diaphysis. No fibular fracture is seen. Vascular calcifications are noted. The tibiotalar joint space and talar dome are unremarkable. IMPRESSION: Nondisplaced fracture distal third left tibial diaphysis. Electronically signed by: Tan Jacome MD 04/08/2018 3:29 PM CDT
== END ==
LOC: RAD 08:58
PROVIDERS: ATTEND Orthopaedic Surgery
DX: S82.202A Unspecified fracture of shaft of left tibia, initial encounter for closed fracture (principal)

== ENCOUNTER → 2018-05-12 | Outpatient (CLI) | payer MEDICARE ==
--- NOTE | 2018-05-12 09:31 | RAD ---
EXAM DESCRIPTION: Tibia/Fibula,Left CLINICAL HISTORY: TIB FX COMPARISON: None April 2018 TECHNIQUE: 2 views left FINDINGS: Loss of medial joint space is observed in the knee. Mild osteopenia is observed. Vascular calcification is noted. A nondisplaced fracture of the distal shaft of the tibia is observed. It is a spiral type fracture. The fracture has become less distinct and there is minimal evidence of callus formation consistent with healing. No new injury is observed. IMPRESSION: Healing spiral fracture of the distal shaft left tibia. Electronically signed by: Neo Gonzales MD 05/12/2018 9:30 AM CDT
== END ==
LOC: RAD 09:08
PROVIDERS: ATTEND Orthopaedic Surgery
DX: S82.302D Unspecified fracture of lower end of left tibia, subsequent encounter for closed fracture with routine healing (principal); S82.832D Other fracture of upper and lower end of left fibula, subsequent encounter for closed fracture with routine healing

== ENCOUNTER → 2018-05-30 | Outpatient (CLI) | payer MEDICARE ==
--- NOTE | 2018-05-30 09:44 | RAD ---
EXAM DESCRIPTION: Tibia/Fibula,Left CLINICAL HISTORY: CLOSED FX OF DISTAL TIBIA COMPARISON: Multiple prior x-rays dating back to April 08, 2018. The most recent comparison is dated May 12, 2018. IMPRESSION: 2 views of the right tibia-fibula. Progressive healing of a distal tibial diaphyseal fracture is present. The fracture line is slightly less conspicuous. Progressive periosteal reaction. No other significant change. Electronically signed by: Fam Watson MD 05/30/2018 9:42 AM CDT
== END ==
LOC: RAD 08:00
PROVIDERS: ATTEND Orthopaedic Surgery
DX: S82.302D Unspecified fracture of lower end of left tibia, subsequent encounter for closed fracture with routine healing (principal); S82.832D Other fracture of upper and lower end of left fibula, subsequent encounter for closed fracture with routine healing

== ENCOUNTER → 2018-06-30 | Outpatient (CLI) | payer MEDICARE ==
--- NOTE | 2018-06-30 15:20 | RAD ---
EXAM DESCRIPTION: Tibia/Fibula,Left CLINICAL HISTORY: 82 years Male, CLOSED FRACTURE OF THE DISTAL TIBIA AND FIBULA COMPARISON: Radiographs dated 05/30/2018. FINDINGS: The visualized bones are well-mineralized. Unchanged appearance of the fracture of the distal tibia compared to prior examination. The soft tissues appear grossly unremarkable. IMPRESSION: Stable appearance of the fracture of the distal tibia compared to prior examination. Electronically signed by: Franny Mandujano MD 06/30/2018 3:19 PM CDT
== END ==
LOC: RAD 09:31
PROVIDERS: ATTEND Orthopaedic Surgery
DX: S82.302D Unspecified fracture of lower end of left tibia, subsequent encounter for closed fracture with routine healing (principal); S82.832D Other fracture of upper and lower end of left fibula, subsequent encounter for closed fracture with routine healing

== ENCOUNTER → 2018-07-21 | Outpatient (CLI) | payer MEDICARE ==
--- NOTE | 2018-07-21 14:13 | RAD ---
EXAM DESCRIPTION: Tibia/Fibula,Left CLINICAL HISTORY: 82 years Male, CLOSED FRACTURE OF DISTAL TIBIA AND DISTAL FIBULA COMPARISON: June 30, 2018 FINDINGS: Nondisplaced fracture of the distal tibia at the diametaphyseal junction is present and unchanged and remains in essentially anatomic alignment compared to prior study three weeks earlier. At least some callus formation is suggested but residual lucency at the fracture line is evident. Complete bony union is not yet apparent. The fibula remains intact. IMPRESSION: Stable distal tibial fracture in essentially anatomic alignment with incomplete bony union but some evident callus formation and sclerosis noted Electronically signed by: Yakov Muller MD 07/21/2018 2:12 PM [facility]
== END ==
LOC: RAD 09:21
PROVIDERS: ATTEND Orthopaedic Surgery
DX: S82.302D Unspecified fracture of lower end of left tibia, subsequent encounter for closed fracture with routine healing (principal); S82.832D Other fracture of upper and lower end of left fibula, subsequent encounter for closed fracture with routine healing

== ENCOUNTER → 2018-07-27 | Outpatient (CLI) | payer MEDICARE ==
--- NOTE | 2018-07-28 11:56 | MRI ---
EXAM DESCRIPTION: Lumbar Spine w/o Contrast : Magnetic Resonance Imaging. CLINICAL HISTORY: SPINAL STENOSIS COMPARISON: Cervical spine MRI on the same visit. Lumbar MRI without and with gadolinium IV contrast 04/14/2013. TECHNIQUE: Multiplanar, multiple standard sequences, non contrast MRI, lumbar spine. FINDINGS: L5-S1: Posterior disc space loss with endplate irregularities. Minimal posterior broad-based bulge. Minimal facet arthrosis more left than right. Right side flavum ligament hypertrophy. Mild canal narrowing. Mild to moderate neural foraminal narrowing with disc bulging. Right side Modic type II-III endplate changes. Disc spur complex encroaching on the foramen which is stenotic. Stable since the prior study. L4-5: Disc desiccation with posterior disc space loss. Minimal endplate irregularities. Left side Modic type III endplate reactive changes with disc spur complex encroaching on the left foramen which is stenotic. Progressed since the prior study. Mild narrowing of the right foramen. Bilateral flavum ligament hypertrophy and facet arthrosis with mild canal narrowing. Stable since the prior study. L3-4: Disc desiccation minimal posterior disc space loss. Anterior endplate ridging. Posterior flavum ligament hypertrophy and facet arthrosis. AP canal diameter 11 mm. Bilateral mild foraminal narrowing. Augmentation cement in the L3 vertebral body. Minimal depression of the superior endplate. No abnormal marrow edema in the vertebral body or the posterior elements. No significant retropulsion. L2-3: Disc desiccation and there is also cement in the disc space. Tiny posterior bulge. Disc spaces expanded due to the depression of the superior L3 endplate. Minimal facet arthrosis and flavum ligament hypertrophy bilaterally. Mild canal narrowing and bilateral mild foraminal narrowing. L1-2: Disc desiccation with anterior tiny bulge and endplate ridging. Posterior disc space narrowed with trace retrolisthesis. No significant posterior disc bulge. Minimal hypertrophy of the flavum ligaments and facets with arthrosis. Mild canal narrowing. Bilateral foramina are patent. Circumscribed hyperintense lesion on T1 and T2 sequences in the right L1 vertebral body. Consistent with a hemangioma. T12-L1: Desiccated signal in the disc. Posterior disc space narrowed. Trace retrolisthesis and posterior bulge. Minimal facet arthrosis and ligament hypertrophy. Canal narrowing but no significant foraminal narrowing or stenosis. Conus terminates at L1. Augmentation cement in the T12 vertebral body. No significant scoliosis. Paravertebral soft tissues showing muscle atrophy.. Otherwise normal marrow signal in the remaining vertebral bodies and the posterior elements. Vertebral bodies are not compressed at any level. IMPRESSION: 1. 2 levels of augmentation cement in the thoracic 12th vertebral body and lumbar third vertebra. No new compression abnormalities with no abnormal marrow edema. 2. Right side moderate to advanced spondylosis at L5-S1 with disc spur complex encroaching on the foramen with stenosis. Correlate for right L5 radiculopathy. Stable since the prior study. 3. Left side L4-5 advanced spondylosis with disc spur complex causing stenosis. Correlate for left L4 radiculopathy. Stable since the prior study. 4. Some of the augmentation cement from the L3 vertebral body has migrated into the L2-3 disc space superior. Electronically signed by: Ferny Elizondo MD 07/28/2018 11:55 AM [facility]
--- NOTE | 2018-07-28 12:22 | MRI ---
EXAM DESCRIPTION: Cervical Spine: MRI. CLINICAL HISTORY: RADICULOPATHY COMPARISON: MRI lumbar spine on the same visit. MRI scan cervical spine 02/19/2010. TECHNIQUE: Multiplanar MRI, multiple sequences, non-contrast high-field cervical spine. FINDINGS: C2-C3: Disc desiccation. Right posterior 4 mm disc protrusion with uncinate spur encroachment on the right foramen and the right C3 nerve. Canal and left foramen are patent. Bilateral facet arthrosis. C3-4: Disc space with irregular endplates and desiccation of the disc. Minimal posterior bulge and midline disc 3 mm abutting the cord. Posterior left flavum ligament hypertrophy. Bilateral small uncinate spurs. Moderate left neural foraminal narrowing and borderline right neural foraminal stenosis. Borderline central canal stenosis. Bilateral facet arthrosis. C4-5: Moderate disc space loss and desiccation of the disc. Bilateral uncinate spurs with left neural foraminal stenosis and moderate narrowing on the right. Posterior disc bulge with endplate spurs abutting the cord with borderline canal stenosis. Bilateral facet arthrosis. C5-6: Disc desiccation with disc space maintained. Uncinate spur on the left with facet arthrosis and left flavum hypertrophy. Left neural foraminal stenosis and mild right neural foraminal narrowing. Minimal canal narrowing by disc bulging. Minimally progressive since the prior study. Left facet arthrosis. C6-C7: Disc desiccation minimal disc space loss and posterior broad-based disc bulge. Bilateral uncinate spurs. Moderate left neural foraminal narrowing and mild right neural foraminal stenosis. Facets are negative. Central canal nearly stenotic with posterior disc bulge and spur. Minimal progression since the prior study. C7-T1: Disc desiccation and tiny posterior bulge. Bilateral uncinate spurs and bilateral moderate neural foraminal narrowing. Minimal facet arthrosis bilaterally. T1-T2: Minimal disc desiccation and posterior bulge. Minimal canal and neural foraminal narrowing. No facet arthrosis. Spinal alignment normal lordosis superior segments but minimal kyphosis C5-T1.. No cord compression or cord edema. Atlantoaxial joint with left side spondylosis and minimal narrowing of the left foramen in the left atlantoaxial occipital foramen. Minimal marrow edema in the odontoid process.. Arthrosis and hypertrophy of the left atlantooccipital facets. Base of the cerebellar tonsils is above the foramen magnum. Paravertebral soft tissues unremarkable except for muscle atrophy.. Small nodule or cyst in the right thyroid lobe, subcentimeter diameter*. Vertebral bodies are not compressed at any level. Otherwise normal marrow signal in the remaining vertebral bodies and the posterior elements. IMPRESSION: 1. Right uncinate C2-C3 spur and small protrusion of the disc encroaching on the right foramen and possibly right C3 nerve. This is progressed since the prior study. 2. Posterior disc bulge with spur abutting the cord at C3-4. Borderline central canal stenosis. Borderline right neural foraminal stenosis is multifactorial. This has progressed since the prior study. 3. Spondylosis at C4-5. Left neural foraminal stenosis. Correlate for left C5 radiculopathy. Progressive since the prior study. 4. Left neural foraminal stenosis at C5-6 by bone and disc complex. Correlate for left C6 radiculopathy. Progressive since the prior study. 5. Mild right neural foraminal stenosis multifactorial at C6-7. Correlate for right C7 radiculopathy. Minimal progression since the prior study. *Subcentimeter incidental thyroid nodule No follow-up imaging is recommended. Reference: J Am Ivett Radiol. 2015 Oct;12(2): 143-50 Electronically signed by: Ferny Elizondo MD 07/28/2018 12:21 PM [facility]
== END ==
LOC: MRI 14:00
PROVIDERS: ATTEND Family Medicine
DX: M99.83 Other biomechanical lesions of lumbar region (principal); M47.897 Other spondylosis, lumbosacral region; M47.896 Other spondylosis, lumbar region; M50.11 Cervical disc disorder with radiculopathy, high cervical region; M47.892 Other spondylosis, cervical region; M48.02 Spinal stenosis, cervical region

== ENCOUNTER → 2018-08-22 | Outpatient (CLI) | payer MEDICARE ==
--- NOTE | 2018-08-22 10:31 | RAD ---
Frontal and lateral views of the left tibia/fibula. Indication: CLOSED FRACTURE OF DISTAL TIBIA AND DISTAL FIBULA Comparison: July 21, 2018 Impression: Previously noted distal tibial metadiaphysis fracture redemonstrated with stable alignment. Slightly progressed periostitis and callus formation noted, however the majority of the fracture appears ununited. A component of nonunion may be present. No new fracture. Medial and lateral compartment osteoarthritis noted. Scattered vascular calcifications. Electronically signed by: Ward Paris MD 08/22/2018 10:29 AM [facility]
== END ==
LOC: RAD 09:12
PROVIDERS: ATTEND Orthopaedic Surgery
DX: S82.302D Unspecified fracture of lower end of left tibia, subsequent encounter for closed fracture with routine healing (principal); S82.832D Other fracture of upper and lower end of left fibula, subsequent encounter for closed fracture with routine healing; R74.8 Abnormal levels of other serum enzymes; E53.8 Deficiency of other specified B group vitamins; R41.82 Altered mental status, unspecified; R41.89 Other symptoms and signs involving cognitive functions and awareness; I10 Essential (primary) hypertension

== ENCOUNTER → 2018-08-25 | Outpatient (CLI) | payer MEDICARE ==
--- NOTE | 2018-08-25 18:44 | MRI ---
EXAM DESCRIPTION: Brain w/o Contrast: MRI. CLINICAL HISTORY: OTHER SYMPTOMS AND SIGNS INVOLVING COGNITIVE FUNCTIONS AND AWARENESS COMPARISON: None. TECHNIQUE: Multiplanar, high-field MRI unit, multiple diffusion sequences, multiple conventional sequences without contrast. FINDINGS: Circumscribed 1.5 cm lesion, dark on FLAIR sequences and bright on T1 and gradient sequence inferior to the left basal ganglia and extending into the anterior temporal lobe between the left temporal horn of the lateral ventricle and the sylvian fissure. Posterior and inferior to the left middle cerebral artery. Surrounded by bright FLAIR gliosis with no diffusion restriction, hemorrhage, or mass effect Faint foci of hyperintense FLAIR and T2-weighted signal in the periventricular haddad radiata bilaterally. Small hyperintense FLAIR foci in the supraventricular subcortical white matter bilaterally. No hemorrhage, no cerebral edema, no mass-effect. Otherwise normal signal in the bilateral basal ganglia. Normal signal in the brainstem and cerebellar hemispheres. No hemorrhage, no cerebral edema, no mass-effect. Concordance of the diffusion and non-diffusion sequences with no diffusion restriction. Cortical sulci, ventricles, and other CSF spaces, and the subdural spaces are normally configured. No effacement or displacement. No midline shift. No extra-axial hemorrhage. Normal flow signal void in the major vessels of the [place], and the venous sinuses. IACs are symmetric bilaterally. Small focal bright T2 signal in the right mastoid air cells; normal signal left mastoid air cells. No mass effect in the bilateral cerebellopontine angles. Pituitary gland not well seen in the sella which is predominantly occupied by hyperintense T2 signal similar to CSF. Base of the cerebellar tonsils is above the foramen magnum. Mucoperiosteal thickening bilateral maxillary antra and nasal passageways and the left frontal sinus. The bony calvarium is intact. IMPRESSION: 1. 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 No hemorrhage, cerebral edema, mass effect, or diffusion restriction. 2. Minimal age-related changes in the periventricular white matter. No acute or subacute infarction on the diffusion study. 3. Empty sella, with small pituitary gland and probable CSF in the sella. Electronically signed by: Ferny Elizondo MD 08/25/2018 6:42 PM [facility]
== END ==
LOC: MRI 11:00
PROVIDERS: ATTEND Family Medicine
DX: R41.89 Other symptoms and signs involving cognitive functions and awareness (principal); G93.89 Other specified disorders of brain; E23.6 Other disorders of pituitary gland

== ENCOUNTER → 2018-09-22 | Outpatient (CLI) | payer MEDICARE ==
--- NOTE | 2018-09-22 09:48 | RAD ---
EXAM DESCRIPTION: Tibia/Fibula,Left CLINICAL HISTORY: 83 years Male, S82.302 COMPARISON: August 22, 2018, July 21, 2018, June 30, 2018, May 30, 2018 FINDINGS: The bones are in normal alignment and mildly osteopenic. An oblique fracture of the distal tibia at the diametaphyseal junction persists with progressive sclerosis and callus formation but incomplete healing in comparison to multiple prior studies. Reticular in comparison to more remote studies from July 21, 2018 and prior to that increasing callous formation and sclerosis but also increasing lucency is apparent. Very little change in comparison to August 22 study is noted. Pattern is consistent with incomplete bony union but some progression of sclerosis and callus formation but also significantly increased lucency at the inferior lateral extent of the oblique fracture. Partial bony union is suspected but residual lucent fracture line or fibrous union is evident. IMPRESSION: 1. Stable alignment of distal tibial fracture with very little change in appearance with mixed sclerotic and lytic changes at the fracture site in comparison to study four weeks earlier. 2. Definite progression of callus formation sclerosis is evident in comparison to more remote studies but only partial bony union and either residual fracture or partial fibrous union suspected in comparison to older studies. Continued follow-up recommended with repeat imaging in 4-8 weeks. Electronically signed by: Yakov Muller MD 09/22/2018 9:47 AM DIRECTOR OF SECURITY
== END ==
LOC: RAD 09:03
PROVIDERS: ATTEND Orthopaedic Surgery
DX: S82.302D Unspecified fracture of lower end of left tibia, subsequent encounter for closed fracture with routine healing (principal); S82.832D Other fracture of upper and lower end of left fibula, subsequent encounter for closed fracture with routine healing

== ENCOUNTER → 2018-10-24 | Outpatient (CLI) | payer MEDICARE | LOC: RESP 14:15 | PROVIDERS: ATTEND Family Medicine | DX: I48.0 Paroxysmal atrial fibrillation (principal) ==

== ENCOUNTER → 2018-11-18 | Outpatient (CLI) | payer MEDICARE ==
--- NOTE | 2018-11-18 11:34 | RAD ---
EXAM DESCRIPTION: Ankle,Left 3 Views CLINICAL HISTORY: 83 years Male, S82.302D COMPARISON: None. FINDINGS: Three views of the left ankle were obtained. Again seen is an obliquely oriented, nondisplaced fracture involving the distal third of the left tibial diaphysis with additional nondisplaced distal left fibular diaphyseal fracture. The fractures remain nonare only partially united and are not significantly changed from September 22, 2018. Vascular calcifications are noted. Calcaneal enthesophyte formation at the Achilles tendon and plantar fascia insertions. IMPRESSION: Distal left tibial and fibular diaphyseal fractures, non or only partially united and unchanged from September 22, 2018. Atherosclerotic vascular disease. Electronically signed by: Tan Jacome MD 11/18/2018 11:31 AM [facility]
--- NOTE | 2018-11-18 11:36 | RAD ---
EXAM DESCRIPTION: Foot,Left 3 Views CLINICAL HISTORY: 83 years Male, S82.302D COMPARISON: None. FINDINGS: Three views of the left foot show no acute fracture or malalignment. Vascular calcifications are noted with calcaneal enthesophyte formation at the Achilles tendon and plantar fascia insertions. No radiopaque foreign body or soft tissue gas. Partially united distal left tibial and fibular fractures are only partially visualized. IMPRESSION: Partially visualized distal left tibial and fibular fractures, but no additional left foot abnormality. Atherosclerotic vascular disease and calcaneal spurring. Electronically signed by: Tan Jacome MD 11/18/2018 11:33 AM [facility] [place]
== END ==
LOC: RAD 09:37
PROVIDERS: ATTEND Orthopaedic Surgery
DX: S82.302D Unspecified fracture of lower end of left tibia, subsequent encounter for closed fracture with routine healing (principal); S82.832D Other fracture of upper and lower end of left fibula, subsequent encounter for closed fracture with routine healing; I70.248 Atherosclerosis of native arteries of left leg with ulceration of other part of lower leg; M77.32 Calcaneal spur, left foot

== ENCOUNTER → 2019-01-13 | Outpatient (CLI) | payer MEDICARE ==
--- NOTE | 2019-01-13 14:33 | RAD ---
EXAM DESCRIPTION: Tibia/Fibula,Left CLINICAL HISTORY: 83 years Male, S82.302K. S82.832K COMPARISON: November 28, 2018 and in September 22, 2018. TECHNIQUE: 2 views of the left tibia/fibula. FINDINGS: Again noted is minimally displaced spiral fracture through the distal tibial shaft with slight interval increased sclerosis of the fracture fragments and slight interval increase in the heterotopic bone formation. However no definite signs of healing noted. Persistent obvious fracture line is noted concerning for nonhealing. Again noted is minimally displaced fracture through the distal fibular shaft with the persistent fracture line. Calcification of the entire course of the posterior tibial artery noted. The overlying soft tissues appear grossly unremarkable. IMPRESSION: 1. Persistent minimally displaced spiral fracture through the distal tibial shaft with stable diastasis of the fracture fragments in comparison to prior exam concerning for nonunion. 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 2. Persistent minimally displaced fracture through the distal fibular shaft with no interval healing. Electronically signed by: Timothy Limon MD 01/13/2019 2:31 PM CDT
--- NOTE | 2019-01-13 14:37 | RAD ---
EXAM DESCRIPTION: Ankle,Left 3 Views CLINICAL HISTORY: 83 years Male, S82.302K. S82.832K COMPARISON: November 2018. TECHNIQUE: AP, oblique and lateral radiographs of the left ankle. FINDINGS: Diffuse osteopenia of the visualized bones noted. Again noted is stable spiral fracture through the distal fibular shaft with obvious fracture lines. No interval healing noted. Slight interval increase in the sclerosis of the fracture fragments noted with slight interval increasing surrounding heterotopic bone formation. Persistent fracture through the distal fibular shaft with no interval signs of healing. The ankle mortise is intact. Mild soft tissue swelling surrounding the ankle joint. Stable enthesopathy changes at the insertion of acquisition as well as a calcaneal spur at the insertion of plantaris tendon. IMPRESSION: 1. Persistent spiral fracture through the distal femoral shaft with no evidence of interval healing concerning for nonunion. 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 2. Persistent fracture line through the distal fibular shaft with no interval healing. Electronically signed by: Timothy Limon MD 01/13/2019 2:35 PM CDT
== END ==
LOC: RAD 08:40
PROVIDERS: ATTEND Orthopaedic Surgery
DX: S82.302K Unspecified fracture of lower end of left tibia, subsequent encounter for closed fracture with nonunion (principal); S82.832K Other fracture of upper and lower end of left fibula, subsequent encounter for closed fracture with nonunion

== ENCOUNTER → 2019-03-01 | Outpatient (CLI) | payer MEDICARE ==
--- NOTE | 2019-03-02 15:01 | NM ---
EXAM DESCRIPTION: Bone Scan, 3Phase CLINICAL HISTORY: DISTAL FX TIB/FIB NON UNION COMPARISON: Left tib-fib radiograph dated January 13, 2019 TECHNIQUE: Following intravenous administration of 27 mCi technetium 99m MDP, three-phase bone scan were obtained of the tib-fib bilaterally. FINDINGS: Blood flow phase: There is increased blood flow to the left distal tibia and fibula, in the same location as the displaced fractures of the left distal tibia and fibula. No abnormal blood flow to the right tibia and fibula Blood pool phase: There is increased blood pool to the left distal tibia and fibula. No abnormal blood pool to the right tibia and fibula. Delayed phase: Intense delayed phase uptake in the left distal tibia and fibula. No abnormal delayed phase uptake of the right tibia and fibula. Degenerative uptake noted of the bilateral knees and ankles. 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 Degenerative uptake of the bilateral knees and ankles. Electronically signed by: Neo Mcclain MD 03/02/2019 2:58 PM CDT
== END ==
LOC: NM 10:00
PROVIDERS: ATTEND Orthopaedic Surgery
DX: Z01.818 Encounter for other preprocedural examination (principal); S82.302K Unspecified fracture of lower end of left tibia, subsequent encounter for closed fracture with nonunion
CPT/HCPCS: 36415; 78315; 85025; 85651; 86140; 87070; A9503

== ENCOUNTER → 2019-03-27 | Outpatient (CLI) | payer MEDICARE ==
--- NOTE | 2019-03-28 06:58 | RAD ---
Findings: Three radiographs of left ankle. Comparison November 18, 2018. Distal tibia: Redemonstrated distal tibial shaft fracture. Stable displacement. Possible increased callus formation. Stable alignment. Distal fibula: Redemonstrated distal fibular shaft fracture. Increased callus formation. Stable alignment. No new fracture identified. Scattered vascular calcifications. IMPRESSION: Redemonstrated distal left tibial and fibular shaft fractures with slight interval healing. Stable alignment. Electronically signed by: Mykel Peña MD 03/28/2019 6:56 AM CDT
--- NOTE | 2019-03-28 07:00 | RAD ---
Findings: 2 radiographs of left tibia and fibula. Comparison 01/13/2019. Distal tibia: Redemonstrated distal tibial shaft fracture. Stable displacement. Possible increased callus formation. Stable alignment. Distal fibula: Redemonstrated distal fibular shaft fracture. Increased callus formation. Stable alignment. No new fracture identified. Scattered vascular calcifications. IMPRESSION: Redemonstrated distal left tibial and fibular shaft fractures with slight interval healing. Stable alignment. Electronically signed by: Mykel Peña MD 03/28/2019 6:58 AM CDT
== END ==
LOC: RAD 15:57
PROVIDERS: ATTEND Orthopaedic Surgery
DX: S82.302K Unspecified fracture of lower end of left tibia, subsequent encounter for closed fracture with nonunion (principal); S82.832K Other fracture of upper and lower end of left fibula, subsequent encounter for closed fracture with nonunion

== ENCOUNTER 2019-04-26 05:53 | Observation (INO) | payer MEDICARE ==
--- NOTE | 2019-04-21 12:03 | HP ---
CHIEF COMPLAINT: Left leg pain. HISTORY OF PRESENT ILLNESS: Mr. Adler is an 83-year-old male with a history of pain secondary to an injury that he sustained at least 6 to 7 months ago. Mr. Adler has been having pain there for quite some time and this was secondary to a tibia fracture. The pain bothers him on a daily basis. It can radiate up to and including a 10 just depending on the amount of activity. He has gone onto nonunion of this and we have discussed options for his tibia fracture. After discussing the risks, benefits and alternatives to that, he has given informed consent. PAST SURGICAL HISTORY: 1. Kyphoplasty. 2. Abdominal surgery. 3. Rotator cuff repair. MEDICATIONS: 1. Pantoprazole. 2. Cefdinir. 3. Tamsulosin. 4. Rosuvastatin. 5. Ropinirole. 6. Clopidogrel. 7. Sucralfate. 8. Metoprolol. 9. Citalopram. 10. Slow iron. 11. Antidiarrheal. 12. Acetaminophen. 13. Calcium. ALLERGIES: NO KNOWN DRUG ALLERGIES. CODE STATUS: Full code. IMMUNIZATIONS: Up to date. SOCIAL HISTORY: The patient does not drink, smoke or use any illicit drugs. FAMILY HISTORY: None pertinent to today's complaint. REVIEW OF SYSTEMS: Negative except as indicated in the History of Present Illness. PHYSICAL EXAMINATION: VITAL SIGNS: Blood pressure 130/65. Pulse 62. Height 5'10". Weight 245 pounds. MENTAL STATUS: The patient is awake, alert, and is able to give a good history and participate in the physical. The patient is oriented to person, place and time. SKIN: Normal tone and turgor. MUSCULOSKELETAL: The tibia shows pain directly overlying the fracture site. There is no erythema, no increased warmth. The extremity is warm and well perfused. There is no malalignment. He has intact sensation distally. There is no erythema in the extremity. IMAGING: X-rays and bone scan were performed. They do demonstrate evidence of a nonunion. ASSESSMENT: 1. Nonunion of tibia fracture. PLAN: The plan at this point is for intramedullary nailing. I have also talked to him about the potential for bone grafting at the time of surgery. We have discussed the risks, benefits, and alternatives to operative therapy and the patient has given informed consent. #[id number] [facility]
[2019-04-26] MEDS ORDERED: SODIUM CHL 0.9% 100ML MINI-BAG 100 ML IVPB ONE (05:57)
[2019-04-26] MEDS ORDERED: TRANEXAMIC ACID 1,000 MG/10 ML VIAL ONE (05:57)
[2019-04-26] MEDS ORDERED: LACTATED RINGERS 1,000 ML ONE (05:57)
[2019-04-26] MEDS ORDERED: SODIUM CHLORIDE 0.9% 250ML 250 ML ONE ×2 (05:58→16:32)
[2019-04-26] MEDS ORDERED: ceFAZolin SODIUM 1 GM VIAL ONE ×2 (05:58→06:41)
[2019-04-26] MEDS ORDERED: VANCOMYCIN HCL INJ 1,000 MG VIAL IVPB ONE ×3 (05:58→16:32)
[2019-04-26] MEDS ORDERED: BUPIVACAINE 0.5% 30 ML VIAL INJ ONE (06:31)
[2019-04-26] MEDS ORDERED: BUPIVACAINE LIPOSOME 13.3 MG/ML VIAL INJ ONE (06:32)
[2019-04-26] MEDS ORDERED: HYDROmorphone HCL INJ 2 MG/ML VIAL ONE (06:55)
[2019-04-26] MEDS ORDERED: ACETAMINOPHEN IV 1000MG 100 ML ONE (06:55)
[2019-04-26] MEDS ORDERED: KETAMINE HCL 50 MG/ML SYG IV ONE (06:55)
[2019-04-26] MEDS: VANCOMYCIN HCL INJ 1,000 MG VIAL IVPB ONE ×2 (07:52→09:14)
[2019-04-26] MEDS: ceFAZolin SODIUM 1 GM VIAL ONE ×2 (07:52→09:14)
[2019-04-26] MEDS ORDERED: BENZOCAINE-MENTH LOZ (CEPACOL) 1 EA LOZ MT PRN (09:37)
[2019-04-26] MEDS ORDERED: MAGNESIUM HYDROXIDE 30 ML UD PO PRN (09:37)
[2019-04-26] MEDS ORDERED: ALUMINUM & MAGNESIUM HYDROXIDE 30 ML UD PO PRN (09:37)
[2019-04-26] MEDS ORDERED: TEMAZEPAM 15 MG CAP PO PRN (09:37)
[2019-04-26] MEDS ORDERED: ACETAMINOPHEN 325 MG TAB PO PRN (09:37)
[2019-04-26] MEDS ORDERED: BISACODYL SUPPOSITORY 10 MG PR PRN (09:37)
[2019-04-26] MEDS ORDERED: ZOLPIDEM TARTRATE 5 MG TAB PO PRN (09:37)
[2019-04-26] MEDS ORDERED: MORPHINE PCA 1 MG/ML 100 ML BAG IVPB SCH (10:00)
[2019-04-26] MEDS ORDERED: diphenhydrAMINE HCL 50 MG/ML VIAL IV ONE (10:00)
[2019-04-26] MEDS ORDERED: PROPOFOL 200 MG/20 ML VIAL IV ONE ×2 (10:00)
[2019-04-26] MEDS ORDERED: raNITIdine HCL INJ 25 MG/ML VIAL IV ONE (10:00)
[2019-04-26] MEDS ORDERED: SODIUM CHLORIDE 0.9% 50 ML VIAL INJ ONE (10:00)
[2019-04-26] MEDS ORDERED: ePHEDrine SULF 50 MG/ML IV ONE (10:00)
[2019-04-26] MEDS ORDERED: LIDOCAINE 1% 10 ML VIAL INJ ONE (10:00)
[2019-04-26] MEDS ORDERED: DEXAMETHASONE INJ 10 MG/ML VIAL IV ONE (10:00)
[2019-04-26] MEDS ORDERED: METOCLOPRAMIDE HCL INJ 10 MG/2 ML VIAL IV ONE (10:00)
--- NOTE | 2019-04-26 11:30 | RAD ---
EXAM DESCRIPTION: Left tibia and fibula, 2 views CLINICAL HISTORY: Intramedullary nailing. Fracture fixation FINDINGS/ IMPRESSION: Intramedullary manuel with proximal and distal interlocking screws. Hypertrophic fracture nonunion distal tibial metadiaphysis. Nonunion of the partially visualized distal fibular fracture distal metadiaphysis No acute fracture. 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
[2019-04-26] MEDS ORDERED: DEX 5% W/NACL 0.45% 1000ML 1,000 ML IVS PRN (11:37)
--- NOTE | 2019-04-26 12:53 | RAD ---
EXAM DESCRIPTION: Fluoroscopy Up to 1Hr CLINICAL HISTORY: IM NAIL LEFT TIBIA FINDINGS/ IMPRESSION: 4 intraoperative radiograph during intramedullary nail fracture fixation of the tibia. Fluoroscopy time 5 minutes 16 seconds Electronically signed by: Yakov Huerta MD 04/26/2019 12:51 PM CDT
[2019-04-26] MEDS ORDERED: ceFAZolin SODIUM 2 GRAMS PREMI 50 ML IVPB ONE (16:06)
[2019-04-26] MEDS: ceFAZolin SODIUM 2 GRAMS PREMI 2 GM in PREMIX BAG 1 BAG IVPB SCH (16:22)
[2019-04-26] MEDS: CLOPIDOGREL 75 MG TAB PO SCH (17:52)
[2019-04-26] MEDS ORDERED: VANCOMYCIN HCL INJ 1,000 MG in SODIUM CHLORIDE 0.9% 250ML 250 ML IVPB ONE (18:00)
[2019-04-26] MEDS ORDERED: TAMSULOSIN 0.4 MG CAP PO SCH (21:00)
[2019-04-26] MEDS ORDERED: PANTOPRAZOLE SODIUM TAB 40 MG PO SCH (21:00)
[2019-04-26] MEDS ORDERED: guaiFENesin ER TAB 600 MG TAB ONE (21:07)
[2019-04-26] MEDS ORDERED: CETIRIZINE HCL 10 MG TAB PO ONE (21:07)
[2019-04-26] MEDS: CYCLOBENZAPRINE HCL 10 MG TAB PO PRN (21:16)
[2019-04-26] MEDS: SUCRALFATE 1 GM TAB PO SCH (21:16)
--- NOTE | 2019-04-26 22:20 | CONS ---
DATE OF CONSULTATION: 04/26/19 SUPERVISING PHYSICIAN: Ayo Hernandez M.D. REASON FOR CONSULTATION: Status post intramedullary nail of left tibia. HISTORY OF PRESENT ILLNESS: Mr. Adler is an 83 year-old male patient that has a history of pain to his left leg that has been over the last 6 to 7 months secondary to a tibia fracture of the left leg. He notes that the initial fracture occurred when he was hit by a socket that was projectiled from a running lawnmower. He developed a nonunion of the tibial fracture and required intramedullary nailing and he failed outpatient treatment measures. He was admitted today for elective intramedullary nailing of the fracture. He was seen postoperatively in stable condition. PAST MEDICAL HISTORY: 1. History of atrial fibrillation. 2. Hyperlipidemia. 3. Obstructive sleep apnea. 4. Peptic ulcer disease. 5. Colon cancer requiring 2 surgeries for adenocarcinoma with surgical cure. 6. 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 7. Restless leg syndrome. 8. Rheumatoid arthritis. 9. Iron-deficiency anemia. 10. Depression. 11. Seasonal allergies. 12. Benign prostatic hypertrophy. PAST SURGICAL HISTORY: 1. Cataract removal 2. Arthroscopy of knee. 3. Kyphoplasty. 4. Rotator cuff repair. HOME MEDICATIONS: 1. Flomax 0.4 mg. 2. Carafate 1 gram a.c. and h.s. 3. Rosuvastatin calcium 5 mg at bedtime. 4. Ropinirole 0.25 mg at bedtime. 5. Protonix 40 mg at bedtime. 6. Olopatadine daily drops. 7. Metoprolol 50 mg daily. 8. Imodium capsules 2 mg b.i.d. as needed. 9. Arava 20 mg daily. 10. Mucinex 600 mg b.i.d. 11. Ferrous sulfate 45 mg daily. 12. Plavix 75 mg q.i.d. 13. Citalopram 20 mg daily. 14. Zyrtec 10 mg at bedtime. 15. Omnicef 300 mg b.i.d. 16. Tylenol Arthritis 650 mg daily. 17. Calcium supplement 1 tablet daily. 18. Cefdinir 300 mg b.i.d. ALLERGIES: NO KNOWN DRUG ALLERGIES. FAMILY HISTORY: Noncontributory. SOCIAL HISTORY: The patient is retired. He is and has 6 children. He is a previous cigarette smoker but quit in 1973. Denies any alcohol or illicit drug use. REVIEW OF SYSTEMS: Denies any general fatigue, general malaise. No fever or chills. HEENT: Chronic vision loss in the right eye. Denies any headaches, ear aches, sore throat, nasal congestion. RESPIRATORY: Denies any shortness of breath, coughing or wheezing. CARDIOVASCULAR: Denies any chest pains or palpitations. Has a past history of atrial fibrillation. Denies any syncopal episodes. GASTROINTESTINAL: Denies any abdominal pains, constipation or diarrhea. GENITOURINARY: Does have some incontinence but denies any dysuria, hematuria or polyuria. MUSCULOSKELETAL: As noted in History of Present Illness, ongoing rheumatoid arthritis affecting multiple joints and nonunion tibial fracture of the left leg resulting in chronic pain. NEUROLOGIC: Denies any headaches, seizures, ataxia, unexplained weakness or any other neurological deficits. PHYSICAL EXAMINATION: VITAL SIGNS: Temperature 97.8, pulse 62, blood pressure 147/69, respirations 14, satting 97% on 2 liters nasal cannula. Admission weight was 102.2 kg. GENERAL: The patient is seen in the immediate postoperative state. He is alert. Shows to be in no acute distress. He is comfortable. HEENT: Tympanic membranes are clear bilaterally. Oropharynx is pink and moist without any lesions. NECK: Supple, non-tender. Full range of motion. No jugular venous distention. CHEST: Lungs were clear to auscultation bilaterally without any rhonchi, wheezing or rales. HEART: Regular rate and rhythm without appreciable murmurs, gallops, or rubs. ABDOMEN: Soft, non-tender. Positive bowel sounds. EXTREMITIES: Dressing is in place on the left lower extremity. Pulses distally were strong. Capillary refill is brisk. No reported neurosensory deficits. NEUROLOGIC: He is alert and oriented times three. LABORATORY: No laboratory available for review at time of admission. RADIOLOGY: A tib/fib x-ray of the left postoperatively shows intramedullary manuel proximal distal interlocking screws with a hypertrophic fracture nonunion distal tibial metadiaphysis with nonunion partially visualized distal fibular fracture with fractured distal metadiaphysis. No acute fractures noted. Moderate osteoarthritis of the knee and ankle. ASSESSMENT: 1. Postoperative day 0 for an intramedullary nailing of a left tibial nonunion fracture. 2. History of atrial fibrillation. 3. Hyperlipidemia. 4. Obstructive sleep apnea. 5. Peptic ulcer disease. 6. Colon cancer requiring 2 surgeries for adenocarcinoma with surgical cure. 7. 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 8. Restless leg syndrome. 9. Rheumatoid arthritis. 10. Iron-deficiency anemia. 11. Depression. 12. Seasonal allergies. 13. Benign prostatic hypertrophy. PLAN: The patient is going to be admitted overnight for pain control and close observation. I have restarted his medications. He is on DVT prophylaxis per protocol. Postoperative orders are provided by Dr. Kidd. Will anticipate length of stay to be 1 to 2 days, possibly discharging tomorrow after further evaluation. Until he can transition back to outpatient management will continue to monitor and treat as needed. #[id number] [facility]
[2019-04-27] MEDS ORDERED: ceFAZolin SODIUM 2 GRAMS PREMI 50 ML IVPB ONE (00:24)
[2019-04-27] MEDS: ceFAZolin SODIUM 2 GRAMS PREMI 2 GM in PREMIX BAG 1 BAG IVPB SCH (00:32)
[2019-04-27] MEDS: SUCRALFATE 1 GM TAB PO SCH ×2 (06:23→11:56)
[2019-04-27 06:25] VITALS: O2SAT 95
[2019-04-27] MEDS ORDERED: OLOPATADINE HCL 0.1% OP SCH (09:00)
[2019-04-27] MEDS ORDERED: NON-FORMULARY MEDICATION 1 EA MIS (Leflunomide [Arava] 20 MG) PO SCH (09:00)
[2019-04-27] MEDS ORDERED: METOPROLOL TARTRATE 50 MG TAB PO SCH (09:00)
[2019-04-27] MEDS ORDERED: CITALOPRAM HBR 20 MG TAB PO SCH (09:00)
--- NOTE | 2019-04-27 09:45 | PN ---
DATE: 04/26/19 POSTOPERATIVE CHECK SUBJECTIVE: Mr. Adler is doing well and his pain is well controlled. OBJECTIVE: Afebrile. Vital signs stable. Dressing is clean, dry and intact. ASSESSMENT: Status post intramedullary nailing. PLAN: The plan is to begin weightbearing as tolerated on postoperative day 1. #[id number] [facility]
--- NOTE | 2019-04-27 09:46 | PN ---
DATE: 04/27/19 POSTOPERATIVE DAY 1 SUBJECTIVE: Mr. Adler is doing well and his pain is pretty well controlled. OBJECTIVE: Afebrile. Vital signs stable. Dressing is clean, dry and intact. His calf is soft. All compartments are without swelling. ASSESSMENT: Status post intramedullary nailing. PLAN: The plan at this point is for weightbearing as tolerated. #[id number] [facility]
[2019-04-27] MEDS: CYCLOBENZAPRINE HCL 10 MG TAB PO PRN (09:47)
[2019-04-27] MEDS: CLOPIDOGREL 75 MG TAB PO SCH (09:48)
[2019-04-27 13:05] VITALS: BP 135/72; TEMP 98.5
--- NOTE | 2019-05-15 20:22 | DS ---
SUPERVISING PHYSICIAN: Ayo Hernandez M.D. ADMISSION DIAGNOSIS: 1. Postoperative day 0 for an intramedullary nailing of a left tibial nonunion fracture. 2. History of atrial fibrillation. 3. Hyperlipidemia. 4. Obstructive sleep apnea. 5. Peptic ulcer disease. 6. Colon cancer requiring 2 surgeries for adenocarcinoma with surgical cure. 7. 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 8. Restless leg syndrome. 9. Rheumatoid arthritis. 10. Iron-deficiency anemia. 11. Depression. 12. Seasonal allergies. 13. Benign prostatic hypertrophy. DISCHARGE DIAGNOSIS: 1. Left tibial nonunion fracture status post same level fall, postoperative day #1 for intramedullary nailing. 2. History of atrial fibrillation with controlled ventricular rate. 3. Hyperlipidemia. 4. Chronic obstructive sleep apnea. 5. Peptic ulcer disease with no complications. 6. History of colon cancer requiring 2 surgeries for adenocarcinoma with surgical cure. 7. 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 8. Restless leg syndrome. 9. Rheumatoid arthritis. 10. Iron-deficiency anemia. 11. Depression. 12. Seasonal allergies. 13. Benign prostatic hypertrophy. REASON FOR HOSPITALIZATION: Mr. Adler is an 83 year-old male patient that has a history of pain to his left leg that has been over the last 6 to 7 months secondary to a tibia fracture of the left leg. He notes that the initial fracture occurred when he was hit by a socket that was projectiled from a running lawnmower. He developed a nonunion of the tibial fracture and required intramedullary nailing and he failed outpatient treatment measures. He was admitted today for elective intramedullary nailing of the fracture. He was seen postoperatively in stable condition. LABORATORY STUDIES: Urine drug screen was negative. No other laboratory studies were completed postoperatively. MICROBIOLOGY: MRSA surveillance culture was negative for MRSA. RADIOLOGY: Postoperative left tib/fib two view showed intramedullary manuel with proximal and distal interlocking screws. Hypertrophic fracture nonunion distal tibial metadiaphysis. Nonunion of the partially visualized distal fibular fracture distal metadiaphysis. No acute fracture is noted. Please see that report for details. HOSPITAL COURSE: Mr. Adler was admitted on 04/26/19 for intramedullary nailing of a nonunion tibial/fibular fracture that failed to respond to outpatient treatment measures. He had no intraoperative complications and was seen postoperatively in stable condition. Vital signs remained stable. On morning of discharge his temperature was 98.5, pulse 99, blood pressure 135/73, respirations 16, satting 95% on room air. PHYSICAL EXAMINATION: GENERAL: The patient was comfortable and appeared to be in no acute distress. CHEST: Lung sounds were clear to auscultation. HEART: Slightly irregular rate and rhythm. ABDOMEN: Soft, non-tender. Positive bowel sounds. EXTREMITIES: Left lower extremity had a dressing in place with pulses distally strong, capillary refill brisk. No reported neurosensory deficits. NEUROLOGIC: He was alert and oriented times three. The patient had shown to be stable and improved clinically enough to continue with outpatient management. PLAN: Mr. Adler was discharged with instructions to followup with Dr. Kidd on 05/01/19 at 8:30 AM. He was to have physical therapy as directed and return to the hospital should he have any worsening or concerning symptoms. Diet at discharge was regular diet as tolerated. Activity is as per Physical Therapy. New prescriptions at discharge included Tylenol #3 every 6 hours as needed for pain, #30, no refills. All other medications prior to hospitalization were continued. Condition on discharge was stable and improved. DISPOSITION: The patient is discharged home. #[id number] [facility]
--- NOTE | 2019-05-22 09:54 | OP ---
DATE OF PROCEDURE: 04/26/19 PREOPERATIVE DIAGNOSIS: 1. Left tibial delayed union. POSTOPERATIVE DIAGNOSIS: 1. Left tibial delayed union. PROCEDURE: 1. Intramedullary nailing. SURGEON: Solitario Kidd MD. TOOL AND DIE ENGINEER: Ferny Valdez CST, SA-C. ANESTHESIA: General anesthesia. COMPLICATIONS: None. FINDINGS: Delayed union of the distal one-third of the tibia. INDICATION: Mr. Adler has a history of a fracture of the distal tibia at about the level of the distal one-third. He has attempted conservative measures for about 8 months, however, has failed to gain relief. Because of that, he has finally decided to proceed with intramedullary nailing. After discussing the risks, benefits and alternatives to that, he has given informed consent for that. PROCEDURE: The patient was brought to the Operating Room and placed in the supine position. General anesthesia was induced and the patient's leg was sterilely prepped and draped. An incision just medial to the patellar tendon was made and the starting point was chosen on the anterior middle of the tibial plateau. The canal was opened and reamed. It was reamed to approximately size 11.5 to accommodate a size 11 nail. The appropriate length nail was chosen and was impacted. Two proximal screws and two distal screws were then placed to lock the nail. Screw lengths and reduction were checked under fluoroscopic imaging and all his wounds were thoroughly irrigated. Following irrigation of the wounds, they were closed and sterile dressings were placed. The patient was awoken from anesthesia and taken to the Recovery Room. POSTOPERATIVE PLAN: He will be weightbearing as tolerated on postoperative day #1. #[id number] [facility]
== END 2019-04-27 12:15 | disposition home or self-care (01) ==
LOC: AMB 05:53 → MS 11:15 → INTOOBSV 11:15
PROVIDERS: ADMIT Orthopaedic Surgery; ATTEND Nurse Practitioner Family
DX: S82.392K Other fracture of lower end of left tibia, subsequent encounter for closed fracture with nonunion (principal); M17.12 Unilateral primary osteoarthritis, left knee; M19.072 Primary osteoarthritis, left ankle and foot; E78.5 Hyperlipidemia, unspecified; G47.33 Obstructive sleep apnea (adult) (pediatric); H34.11 Central retinal artery occlusion, right eye; H54.61 Unqualified visual loss, right eye, normal vision left eye; I10 Essential (primary) hypertension; G25.81 Restless legs syndrome; M06.9 Rheumatoid arthritis, unspecified; D50.9 Iron deficiency anemia, unspecified; F32.9 Major depressive disorder, single episode, unspecified; K21.9 Gastro-esophageal reflux disease without esophagitis; N40.0 Benign prostatic hyperplasia without lower urinary tract symptoms; J30.2 Other seasonal allergic rhinitis; W20.8XXD Other cause of strike by thrown, projected or falling object, subsequent encounter; Z79.02 Long term (current) use of antithrombotics/antiplatelets; Z79.899 Other long term (current) drug therapy; Z86.73 Personal history of transient ischemic attack (TIA), and cerebral infarction without residual deficits; Z87.11 Personal history of peptic ulcer disease; Z85.038 Personal history of other malignant neoplasm of large intestine; Z87.891 Personal history of nicotine dependence
CPT/HCPCS: 96366; 96367; 96365; 96376; C1713 ×3; C1769; J0690 ×5; J1200; J1170; J2765; J2270; J3490 ×3; J7050 ×3; J3370 ×3; J1100; J2780; A4216; J7799; J7120; 80307; 87070; 76000; 73590; 97760; 97116; 97110; G8978; G8979; 97162; G0378; 27720; 01480

== ENCOUNTER → 2019-05-12 | Outpatient (CLI) | payer MEDICARE | LOC: RAD 08:30 | PROVIDERS: ATTEND Orthopaedic Surgery | DX: S82.302K Unspecified fracture of lower end of left tibia, subsequent encounter for closed fracture with nonunion (principal); S82.832K Other fracture of upper and lower end of left fibula, subsequent encounter for closed fracture with nonunion; I70.202 Unspecified atherosclerosis of native arteries of extremities, left leg; Z98.890 Other specified postprocedural states ==

== ENCOUNTER → 2019-06-23 | Outpatient (CLI) | payer MEDICARE ==
--- NOTE | 2019-06-23 12:57 | RAD ---
EXAM DESCRIPTION: Tibia/Fibula,Left (accession [id number]), Ankle,Left 3 Views (accession [id number]) CLINICAL HISTORY: 83 years Male, CLOSED FRACTURE OF DISTAL FIBULA AND TIBIA COMPARISON: May 12, 2019 Findings: Similar alignment of the internally fixated distal left tibial fracture. Interval healing. No new fracture identified. No hardware complication. Similar alignment of the healing fibular fracture. Otherwise no significant interval change. Vascular calcifications. The talar dome is unremarkable. Ankle mortise is symmetric. No focal soft tissue swelling. IMPRESSION: Healing distal left tibial and fibular fractures. No hardware complication. Similar alignment. Electronically signed by: Mykel Peña MD 06/23/2019 12:56 PM CDT
--- NOTE | 2019-06-23 12:57 | RAD ---
EXAM DESCRIPTION: Tibia/Fibula,Left (accession [id number]), Ankle,Left 3 Views (accession [id number]) CLINICAL HISTORY: 83 years Male, CLOSED FRACTURE OF DISTAL FIBULA AND TIBIA COMPARISON: May 12, 2019 Findings: Similar alignment of the internally fixated distal left tibial fracture. Interval healing. No new fracture identified. No hardware complication. Similar alignment of the healing fibular fracture. Otherwise no significant interval change. Vascular calcifications. The talar dome is unremarkable. Ankle mortise is symmetric. No focal soft tissue swelling. IMPRESSION: Healing distal left tibial and fibular fractures. No hardware complication. Similar alignment. Electronically signed by: Mykel Peña MD 06/23/2019 12:56 PM CDT
== END ==
LOC: RAD 09:53
PROVIDERS: ATTEND Orthopaedic Surgery
DX: S82.302K Unspecified fracture of lower end of left tibia, subsequent encounter for closed fracture with nonunion (principal); S82.832D Other fracture of upper and lower end of left fibula, subsequent encounter for closed fracture with routine healing

== ENCOUNTER → 2019-07-11 | Outpatient (CLI) | payer MEDICARE ==
--- NOTE | 2019-07-12 12:11 | MRI ---
EXAM DESCRIPTION: Lumbar Spine w/o Contrast : Magnetic Resonance Imaging. CLINICAL HISTORY: LUMBAGO WITH SCIATICA RIGHT SIDE COMPARISON: MRI scan lumbar spine without contrast July 2018. TECHNIQUE: Multiplanar, multiple standard sequences, non contrast MRI, lumbar spine. FINDINGS: L5-S1: The disc is well visualized on axial T2 series 501, image 3. Disc desiccation with disc space loss and endplate changes in the midline anterior and right side. Disc osteophyte complex encroaching on the right foramen which is markedly stenotic. This has progressed since the prior study. Effacement of the right subarticular recess abutting the descending right S1 nerve stable. Hypertrophic facet arthrosis and ligament thickening more right than left. Moderate to severe left foraminal narrowing is unchanged. Tiny posterior disc bulge. 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 L4-L5: Disc space loss and disc desiccation is moderate and more severe in to the left of midline with stable Schmorl's node superior L5 endplate. Disc osteophyte encroachment on the left foramen with stenosis and impingement of the left L4 nerve. Stable grade 1 retrolisthesis. Atrophic facet arthrosis and ligament thickening more left than right. Mild narrowing of the right subarticular recess. AP canal diameter 11 mm. Moderate narrowing right foramen. No change since the prior study. L3-L4: Disc desiccation with disc space maintained. Posterior bilateral hypertrophic facet arthrosis and thickening of the ligaments. AP canal diameter 12 mm. Moderate narrowing of the left foramen and mild narrowing of the right foramen. Stable since the prior study. L2-L3: Stable depression of the superior L2 endplate which contains augmentation cement in the inferior disc space. Also cement inferior vertebral body. Minimal disc bulge of the right of midline. Moderate bilateral hypertrophic facet arthrosis and ligament thickening. Disc osteophyte bulge into the right foramen with moderate narrowing. Mild narrowing of the left foramen. No changes at this level since prior study. L1-L2: Disc desiccation with disc space loss posterior. Grade 1 retrolisthesis 2 mm. Minimal narrowing of the subarticular recesses bilaterally. Bilateral hypertrophic facet arthrosis and ligament thickening. AP canal diameter 13 mm. Mild bilateral foraminal narrowing. Hyperintense T2 and T1 circumscribed lesion in the right posterior L1 vertebral body consistent with a hemangioma. This level is stable since the prior study. T12-L1: Posterior disc space narrowing with disc desiccation. Tiny grade 1 retrolisthesis. Mild bilateral hypertrophic facet arthrosis and ligament hypertrophy. Mild canal narrowing. Augmentation cement centrally located within the T12 vertebral body. Bilateral foramina are patent. No change at this level since the prior study. Minimal mid lumbar levoscoliosis stable since the prior study. Paravertebral soft tissues negative.. Distal cord normal signal and caliber. Normal marrow signal in the remaining vertebral bodies and the posterior elements. Vertebral bodies are not compressed at any level. IMPRESSION: 1. Multiple levels of disc desiccation, disc space loss, hypertrophic facet arthrosis and thickening of the flavum ligaments. Previous compression injuries with vertebral body augmentation at L3 and T12. 2. 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 Moderate to severe left foraminal narrowing and canal narrowing stable. 3. Stable compression type vertebral body fracture L3 superior endplate since the prior study. 4. Left side L4-L5 disc osteophyte complex encroaching on the foramen with stenosis and impingement of the left L4 nerve. Moderate canal narrowing. This level is stable since the prior study. Electronically signed by: Ferny Elizondo MD 07/12/2019 12:09 PM CDT
== END ==
LOC: MRI 13:00
PROVIDERS: ATTEND Family Medicine
DX: M48.56XA Collapsed vertebra, not elsewhere classified, lumbar region, initial encounter for fracture (principal); M51.36 Other intervertebral disc degeneration, lumbar region; M47.897 Other spondylosis, lumbosacral region; M51.86 Other intervertebral disc disorders, lumbar region

== ENCOUNTER 2019-07-26 14:04 | Emergency (ER) | payer MEDICARE ==
--- NOTE | 2019-07-26 14:16 | ED.PDOC ---
History of Present Illness - General Chief Complaint: Chest Pain/[place] Time Seen by Provider: 07/26/19 14:14 Source: patient Exam Limitations: no limitations - History of Present Illness Initial Comments: 83 yo M who presents for midsternal chest pain, having multiple episodes, lasting for 30 minutes, associated with exertion, no radiation, dull pain, reports associated lightheadedness, diaphoresis, SOB described as "taking my breath away" with the episodes. Last episode occurred on the drive over here at rest. Denies f/c, cough, congestion, abd pain, n/v/d, edema. Allergies/Adverse Reactions: Allergies NO KNOWN ALLERGY Allergy (Verified 04/26/19 11:45) Home Medications: Ambulatory Orders RX: Citalopram Hydrobromide 20 mg PO DAILY 06/23/17 RX: Metoprolol Tartrate 50 mg PO QAM #30 tab 07/01/17 RX: Clopidogrel Bisulfate [Plavix] 75 mg PO QD #30 tab 07/07/17 RX: Ferrous Sulfate Dried [Slow Release Iron] 45 mg PO DAILY 04/21/19 RX: Leflunomide [Arava] 20 mg PO DAILY 04/21/19 RX: Olopatadine HCl 0.1 % OP BID 04/21/19 RX: Ropinirole Hydrochloride [Ropinirole HCl] 0.25 mg PO BEDTIME 04/21/19 RX: Rosuvastatin Calcium [Ezallor Sprinkle] 5 mg PO BEDTIME 04/21/19 RX: Tamsulosin [Flomax] 0.4 mg PO BEDTIME 04/21/19 RX: Pantoprazole Tablet [Protonix] 40 mg PO BEDTIME 04/26/19 Acetaminophen [Tylenol] 500 mg PO BID 07/26/19 Cholecalciferol [Vitamin D3] 2,000 unit PO DAILY 07/26/19 Cyanocobalamin [B12] 1,000 mcg PO DAILY 07/26/19 RX: Calcium 600 mg PO DAILY 07/26/19 RX: Sucralfate Tab [Carafate Tab] 1 gm PO BID 07/26/19 Review of Systems - Review of Systems Constitutional: States: diaphoresis. Denies: chills, fever EENTM: Denies: nose congestion Respiratory: States: short of breath. Denies: cough, orthopnea, wheezing Cardiology: States: chest pain. Denies: edema, palpitations, syncope Gastrointestinal/Abdominal: Denies: abdominal pain, diarrhea, nausea, vomiting Genitourinary: Denies: dysuria, frequency, hematuria Musculoskeletal: Denies: back pain, neck pain Skin: Denies: change in color, rash Neurological: States: other - lightheadedness. Denies: headache, numbness, weakness Past Medical History (General) - Patient Medical History Hx Seizures: No Hx Stroke: Yes - 05/2017 Hx Asthma: No Hx of COPD: No Hx Cardiac Disorders: Yes - A fib Hx Congestive Heart Failure: No Hx Pacemaker: No Hx Hypertension: No Hx Diabetes: No Hx Gastroesophageal Reflux: Yes - heartburn Hx Cancer: Yes - Adenocarcinoma to colon Hx Hepatitis C: No Hx MRSA: No - Vaccination History Hx Tetanus, Diphtheria Vaccination: Yes Hx Influenza Vaccination: No Hx Pneumococcal Vaccination: Yes - Social History Hx Tobacco Use: Yes - Quit 1974 Hx Chewing Tobacco Use: No Hx Alcohol Use: No Hx Substance Use: No Hx Substance Use Treatment: No Hx Depression: No Hx Physical Abuse: No Hx Emotional Abuse: No Hx Suspected Abuse: No - Female History Patient : No Family Medical History - Family History Father Name: Yakov Adler Living Status: Age at (years of age): 80 Cause of : cancer Hx Family Cancer: Yes - prostate Hx Family;Other: Pt has multiple male relatives with colon cancer. Physical Exam - Physical Exam General Appearance: Alert, Comfortable, No apparent distress, Well Developed, Well Groomed, Well Nourished Eyes, Ears, Nose, Throat Exam: normal ENT inspection Neck: non-tender, full range of motion, supple Respiratory: chest non-tender, lungs clear, normal breath sounds, no respiratory distress, no accessory muscle use Cardiovascular/Chest: normal peripheral pulses, regular rate, rhythm, no edema, no gallop, no JVD, no murmur Peripheral Pulses: radial,right: 2+, radial,left: 2+ Gastrointestinal/Abdominal: normal bowel sounds, non tender, soft Extremity: normal range of motion, non-tender, normal inspection, no pedal edema, no calf tenderness Neurologic: no motor/sensory deficits, alert, normal mood/affect, oriented x 3 Skin Exam: normal color, warm/dry Progress - Progress Progress: 07/26/19 15:34 Workup unremarkable, discussed with pt and family need for admission with concerning sx for unstable angina, HEART score >3, pt and family agree with plan, requests transfer to medical home where 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 All questions and concerns addressed. 07/26/19 17:[address] Griffin, hospitalist at [facility], accepts for transfer and admission. 07/26/19 21:24 Delay in transfer as pt is waiting for a bed. Pt is well appearing, NAD, resting comfortably, one episode in the ED, EKG repeated and no STEMI. Damaris Ingram MD Emergency Medicine Physician Billing Number [id number] - Results/Orders Results/Orders: Laboratory Results - last 24 hr 07/26/19 07/26/19 07/26/19 14:14 14:14 14:14 WBC 3.8 L RBC 4.52 L Hgb 14.5 Hct 42.8 MCV 94.8 H MCH 32.0 H MCHC 33.8 RDW 14.2 Plt Count 153 MPV 8.7 Absolute Neuts (auto) 2.00 Absolute Lymphs (auto) 1.30 Absolute Monos (auto) 0.50 Absolute Eos (auto) 0.10 Absolute Basos (auto) 0.00 Neutrophils % 52.0 Lymphocytes % 32.8 Monocytes % 12.9 H Eosinophils % 1.4 Basophils % 0.9 Sodium 143 Potassium 4.0 Chloride 106 Carbon Dioxide 27 Anion Gap 14.0 BUN 24 H Creatinine 0.88 BUN/Creatinine Ratio 27.3 H Random Glucose 104 Serum Osmolality 289.3 Calcium 9.5 Total Bilirubin 1.4 H AST 25 ALT 22 Alkaline Phosphatase 81 Troponin I 0.03 Serum Total Protein 7.0 Albumin 4.5 Globulin 2.5 Albumin/Globulin Ratio 1.8 07/26/19 19:07 WBC RBC Hgb Hct MCV MCH MCHC RDW Plt Count MPV Absolute Neuts (auto) Absolute Lymphs (auto) Absolute Monos (auto) Absolute Eos (auto) Absolute Basos (auto) Neutrophils % Lymphocytes % Monocytes % Eosinophils % Basophils % Sodium Potassium Chloride Carbon Dioxide Anion Gap BUN Creatinine BUN/Creatinine Ratio Random Glucose Serum Osmolality Calcium Total Bilirubin AST ALT Alkaline Phosphatase Troponin I 0.03 Serum Total Protein Albumin Globulin Albumin/Globulin Ratio CXR:EXAM DESCRIPTION: Chest,2 Views CLINICAL HISTORY: chest pain COMPARISON: Previous chest x-ray July 07, 2017 TECHNIQUE: PA/lateral FINDINGS: Since the previous study, extensive pulmonary infiltrates have cleared. Heart size is prominent with normal pulmonary vascularity. Calcified granuloma in the left midlung. No pleural effusion or pneumothorax. Lungs are clear with no consolidating infiltrate. Lateral view shows intact sternum and T-spine. 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 This was present previously. IMPRESSION: Prominent heart without congestive failure. Electronically signed by: Jona Merrill MD 07/26/2019 3:13 PM MULTI P[employer]CH OPERATOR Vital Signs - 24 hr 07/26/19 07/26/19 07/26/19 14:04 15:04 16:00 Temperature 96.4 F L Pulse Rate Pulse Rate [ 72 61 56 L Left Radial] Respiratory 20 14 14 Rate Blood Pressure 161/74 122/69 129/54 [Left Arm] O2 Sat by Pulse 95 94 L 93 L Oximetry 07/26/19 07/26/19 07/26/19 17:00 18:00 19:00 Temperature 97.6 F Pulse Rate Pulse Rate [ 56 L 60 54 L Left Radial] Respiratory 12 18 20 Rate Blood Pressure 134/63 143/77 116/64 [Left Arm] O2 Sat by Pulse 92 L 95 97 Oximetry 07/26/19 20:51 Temperature 97.5 F L Pulse Rate 69 Pulse Rate [ 54 L Left Radial] Respiratory 20 Rate Blood Pressure 137/63 [Left Arm] O2 Sat by Pulse 95 Oximetry - EKG/XRAY/CT EKG: Sinus, LVH, no ST T wave changes Departure - Departure Clinical Impression: Chest pain, unspecified Time of Disposition: 15:34 Disposition: Transfer to Hospital Home Medications: Ambulatory Orders RX: Citalopram Hydrobromide 20 mg PO DAILY 06/23/17 RX: Metoprolol Tartrate 50 mg PO QAM #30 tab 07/01/17 RX: Clopidogrel Bisulfate [Plavix] 75 mg PO QD #30 tab 07/07/17 RX: Ferrous Sulfate Dried [Slow Release Iron] 45 mg PO DAILY 04/21/19 RX: Leflunomide [Arava] 20 mg PO DAILY 04/21/19 RX: Olopatadine HCl 0.1 % OP BID 04/21/19 RX: Ropinirole Hydrochloride [Ropinirole HCl] 0.25 mg PO BEDTIME 04/21/19 RX: Rosuvastatin Calcium [Ezallor Sprinkle] 5 mg PO BEDTIME 04/21/19 RX: Tamsulosin [Flomax] 0.4 mg PO BEDTIME 04/21/19 RX: Pantoprazole Tablet [Protonix] 40 mg PO BEDTIME 04/26/19 Acetaminophen [Tylenol] 500 mg PO BID 07/26/19 Cholecalciferol [Vitamin D3] 2,000 unit PO DAILY 07/26/19 Cyanocobalamin [B12] 1,000 mcg PO DAILY 07/26/19 RX: Calcium 600 mg PO DAILY 07/26/19 RX: Sucralfate Tab [Carafate Tab] 1 gm PO BID 07/26/19
--- NOTE | 2019-07-26 15:14 | RAD ---
EXAM DESCRIPTION: Chest,2 Views CLINICAL HISTORY: chest pain COMPARISON: Previous chest x-ray July 07, 2017 TECHNIQUE: PA/lateral FINDINGS: Since the previous study, extensive pulmonary infiltrates have cleared. Heart size is prominent with normal pulmonary vascularity. Calcified granuloma in the left midlung. No pleural effusion or pneumothorax. Lungs are clear with no consolidating infiltrate. Lateral view shows intact sternum and T-spine. 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 This was present previously. IMPRESSION: Prominent heart without congestive failure. Electronically signed by: Jona Merrill MD 07/26/2019 3:13 PM [facility]
[2019-07-26] MEDS ORDERED: ASPIRIN (CHEWABLE) 81 MG TAB PO ONE (17:37)
[2019-07-26 23:37] VITALS: TEMP 96.8; O2SAT 96
[2019-07-27 00:50] VITALS: BP 178/75
== END 2019-07-27 00:51 | disposition short-term general hospital (02) ==
LOC: ER 14:04
DX: R07.9 Chest pain, unspecified (principal); I48.91 Unspecified atrial fibrillation; K21.9 Gastro-esophageal reflux disease without esophagitis; Z87.891 Personal history of nicotine dependence; Z85.038 Personal history of other malignant neoplasm of large intestine; Z79.02 Long term (current) use of antithrombotics/antiplatelets; Z79.899 Other long term (current) drug therapy

== ENCOUNTER → 2019-09-25 | Outpatient (CLI) | payer MEDICARE ==
--- NOTE | 2019-09-25 11:52 | RAD ---
EXAM DESCRIPTION: Tibia/Fibula,Left CLINICAL HISTORY: CLOSED FRACTURE OF DISTAL TIBIA AND DISTAL FIBULA LEFT COMPARISON: 23 June 2019 TECHNIQUE: 2 views left FINDINGS: Fractures of the distal tibia and fibular are observed. An IM manuel is seen to traverse the tibial fracture. Screw fixation of the proximal and distal aspects is observed. Alignment of the fractures is not appear significantly changed. Partial bridging of the tibial fracture is observed with callus. There is persistent nonunion on the medial side. Nonunion of the fibular fracture is noted. IMPRESSION: 1. A fracture of the distal tibia is observed. Spine IM manuel. Partial bony union is observed. 2. Fracture of the distal fibula is observed. No significant bridging callus is yet evident. Electronically signed by: Neo Gonzales MD 09/25/2019 11:50 AM [facility]
== END ==
LOC: RAD 10:10
PROVIDERS: ATTEND Orthopaedic Surgery
DX: S82.302K Unspecified fracture of lower end of left tibia, subsequent encounter for closed fracture with nonunion (principal); S82.392D Other fracture of lower end of left tibia, subsequent encounter for closed fracture with routine healing; Z98.890 Other specified postprocedural states

== ENCOUNTER → 2020-01-19 | Outpatient (CLI) | payer MEDICARE | LOC: BFHH 11:19 | PROVIDERS: ATTEND Family Medicine | DX: I48.20 Chronic atrial fibrillation, unspecified (principal); I25.10 Atherosclerotic heart disease of native coronary artery without angina pectoris; J44.9 Chronic obstructive pulmonary disease, unspecified; E78.5 Hyperlipidemia, unspecified; Z85.038 Personal history of other malignant neoplasm of large intestine ==

== ENCOUNTER → 2020-01-26 | Outpatient (CLI) | payer MEDICARE ==
--- NOTE | 2020-01-26 10:03 | RAD ---
EXAM DESCRIPTION: Pelvis CLINICAL HISTORY: 84 years Male, HIP PAIN COMPARISON: None. TECHNIQUE: AP radiograph of the pelvis was performed. FINDINGS: The pelvic ring appears grossly intact on this single AP radiograph. No acute fracture or dislocation. Bilateral sacroiliac joints appear normal. Moderate right and moderate to severe left hip osteoarthritis. The visualized lumbo-sacral spine demonstrates mild degenerative changes. IMPRESSION: Single AP radiograph of the pelvis demonstrates grossly intact pelvic ring. Moderate right and moderate to severe left hip osteoarthritis. Electronically signed by: Franny Mandujano MD 01/26/2020 10:01 AM CDT
--- NOTE | 2020-01-26 10:03 | RAD ---
EXAM DESCRIPTION: Hip,Right 2 Views CLINICAL HISTORY: 84 years Male, HIP PAIN COMPARISON: None available. FINDINGS: The visualized bones are well-mineralized.No acute fracture or dislocation. Moderate right hip osteoarthritis. The soft tissues appear grossly unremarkable. IMPRESSION: Moderate right hip osteoarthritis. Electronically signed by: Franny Mandujano MD 01/26/2020 10:01 AM CDT
== END ==
LOC: RAD 09:20
PROVIDERS: ATTEND Orthopaedic Surgery
DX: M16.0 Bilateral primary osteoarthritis of hip (principal)

== ENCOUNTER 2020-07-08 05:04 | Day surgery (SDC) | payer MEDICARE ==
[2020-07-08] MEDS ORDERED: LIDOCAINE 1% 10 ML VIAL INJ ONE (09:13)
[2020-07-08] MEDS ORDERED: BETAMETHASONE ACETATE/BETAMETH 6 MG/ML VIAL IM ONE (09:13)
[2020-07-08] MEDS ORDERED: BUPIVACAINE 0.5% 30 ML VIAL INJ ONE ×2 (09:13)
== END 2020-07-08 09:40 | disposition home or self-care (01) ==
LOC: AMB 05:04
PROVIDERS: ATTEND Family Medicine Sports Medicine
DX: M16.0 Bilateral primary osteoarthritis of hip (principal); I25.10 Atherosclerotic heart disease of native coronary artery without angina pectoris; E78.5 Hyperlipidemia, unspecified; I11.0 Hypertensive heart disease with heart failure; I50.9 Heart failure, unspecified; G47.30 Sleep apnea, unspecified; G30.9 Alzheimer's disease, unspecified; F02.80 Dementia in other diseases classified elsewhere, unspecified severity, without behavioral disturbance, psychotic disturbance, mood disturbance, and anxiety; E53.8 Deficiency of other specified B group vitamins; Z87.11 Personal history of peptic ulcer disease; Z87.891 Personal history of nicotine dependence; Z88.6 Allergy status to analgesic agent; Z79.01 Long term (current) use of anticoagulants; Z79.899 Other long term (current) drug therapy

== ENCOUNTER 2020-09-09 05:38 | Day surgery (SDC) | payer MEDICARE ==
[2020-09-09] MEDS ORDERED: DEXAMETHASONE INJ 10 MG/ML VIAL ONE (07:18)
[2020-09-09] MEDS ORDERED: LIDOCAINE 1% 10 ML VIAL INJ ONE ×2 (07:18→10:45)
[2020-09-09] MEDS ORDERED: BUPIVACAINE 0.5% 30 ML VIAL INJ ONE ×2 (07:19→10:45)
[2020-09-09] MEDS ORDERED: DEXAMETHASONE INJ 10 MG/ML VIAL IV ONE (10:45)
== END 2020-09-09 11:27 | disposition home or self-care (01) ==
LOC: AMB 05:38
PROVIDERS: ATTEND Family Medicine Sports Medicine
DX: M54.5 Low back pain (principal); M54.16 Radiculopathy, lumbar region; I48.91 Unspecified atrial fibrillation; I25.10 Atherosclerotic heart disease of native coronary artery without angina pectoris; E78.5 Hyperlipidemia, unspecified; G47.30 Sleep apnea, unspecified; N40.0 Benign prostatic hyperplasia without lower urinary tract symptoms; G30.9 Alzheimer's disease, unspecified; F02.80 Dementia in other diseases classified elsewhere, unspecified severity, without behavioral disturbance, psychotic disturbance, mood disturbance, and anxiety; I50.9 Heart failure, unspecified; E53.9 Vitamin B deficiency, unspecified; Z87.11 Personal history of peptic ulcer disease; Z88.6 Allergy status to analgesic agent; Z87.891 Personal history of nicotine dependence; Z79.01 Long term (current) use of anticoagulants; Z79.899 Other long term (current) drug therapy
CPT/HCPCS: 64483; 64484; 76000; J1100

== ENCOUNTER 2020-09-30 05:48 | Day surgery (SDC) | payer MEDICARE ==
[2020-09-30] MEDS ORDERED: LIDOCAINE 1% 10 ML VIAL INJ ONE ×3 (07:21→08:07)
[2020-09-30] MEDS ORDERED: BETAMETHASONE ACETATE/BETAMETH 6 MG/ML VIAL IM ONE ×3 (07:22→08:07)
[2020-09-30] MEDS ORDERED: BUPIVACAINE 0.5% 30 ML VIAL INJ ONE ×3 (07:23→08:07)
== END 2020-09-30 08:30 | disposition home or self-care (01) ==
LOC: AMB 05:48
PROVIDERS: ATTEND Family Medicine Sports Medicine
DX: M46.1 Sacroiliitis, not elsewhere classified (principal); M54.5 Low back pain; M47.817 Spondylosis without myelopathy or radiculopathy, lumbosacral region; I11.0 Hypertensive heart disease with heart failure; I50.9 Heart failure, unspecified; G47.30 Sleep apnea, unspecified; E78.5 Hyperlipidemia, unspecified; N40.0 Benign prostatic hyperplasia without lower urinary tract symptoms; I48.91 Unspecified atrial fibrillation; K27.9 Peptic ulcer, site unspecified, unspecified as acute or chronic, without hemorrhage or perforation; M17.0 Bilateral primary osteoarthritis of knee; M19.049 Primary osteoarthritis, unspecified hand; E53.8 Deficiency of other specified B group vitamins; Z88.6 Allergy status to analgesic agent; Z79.01 Long term (current) use of anticoagulants; Z79.899 Other long term (current) drug therapy
CPT/HCPCS: 76000; G0260